=== PATIENT | female | born 1940 | race Caucasian/White ===

== ENCOUNTER → 2017-01-04 08:23 | Outpatient (CLI) | payer MEDICARE, OTHER ==
[2012-05-31 13:48] VITALS: BMI 24.4
== END | disposition home or self-care (01) ==
LOC: D.CT 08:23
DX: R91.1 Solitary pulmonary nodule (principal)

== ENCOUNTER → 2017-01-16 08:37 | Outpatient (CLI) | payer MEDICARE, OTHER ==
[2012-05-31 13:48] VITALS: BMI 24.4
== END | disposition home or self-care (01) ==
LOC: D.CT 08:37
DX: K86.2 Cyst of pancreas (principal)

== ENCOUNTER → 2017-01-19 09:17 | Outpatient (CLI) | payer MEDICARE, OTHER ==
[2012-05-31 13:48] VITALS: BMI 24.4
== END | disposition home or self-care (01) ==
LOC: D.MRI 09:17
DX: K86.2 Cyst of pancreas (principal)

== ENCOUNTER → 2017-04-12 16:46 | Outpatient (CLI) | payer MEDICARE, OTHER ==
[2012-05-31 13:48] VITALS: BMI 24.4
== END | disposition home or self-care (01) ==
LOC: D.MAMMO 13:00
DX: Z12.31 Encounter for screening mammogram for malignant neoplasm of breast (principal)

== ENCOUNTER → 2018-04-03 08:56 | Outpatient (CLI) | payer MEDICARE, OTHER ==
[~2018-04-03] VITALS: Ht 162.6 cm; Wt 65.5 kg
--- NOTE | ~2018-04-03 | HEMODYNAMI ---
PATIENT:THONG GUILLAUME MEDICAL RECORD: [id number] : 40 LOCATION:[facility] ADMISSION DATE: 04/03/18 Generatedon:04/03/201810:44 Patient name: THONG GUILLAUME Patient #: [id number] SSN: : 1940 Date of study: 04/03/2018 Page: Of Hemodynamic Procedure Report Patient Data Patient Demographics Procedure consent was obtained First Name: THONG Gender: Female Last Name: MARKELL : 1940 Patient #: [id number] Age: 77 year(s) Race: Unknown Additional ID: [id number] Contact details Address: [address] [place] [address] [address]REET State: [place] City: [place] Zip code: [address] Past Medical History Allergies Allergen Reaction Date Comments Reported Other allergy 04/03/2018 AL SOTO Admission Admission Data Admission Date: 04/03/2018 Admission Time: 8:56 Height (in.): 5.4 BSA: 0.28 (m2) Height (cm.): 13.72 BMI: 3471.95 (kg/m2) Weight (lbs.): 144 Weight (kg.): 65.32 Lab Results Lab Result Date: 04/03/2018 Lab Result Time: 0:00 Biochemistry Name Units Result Min Max BUN mg/dl 7 --(*---)-- 7 18 Creatinine mg/dl 0.9 --(-*--)-- 0.6 1.3 CBC Name Units Result Min Max Hemoglobin g/dl 12.2 *-(----)-- 13.5 17.5 Procedure Procedure Types Cath Procedure Diagnostic Procedure C [facility] w/Coronaries Sedation Charges Moderate Sedation up to 15 minutes Procedure Description Procedure Date Procedure Date: 04/03/2018 Procedure Start Time: 10:20 Procedure End Time: 10:42 Procedure Staff Name Function Mukund Wise MD Performing Physician Pamella Luciano RT Monitor Christian Rich RN Nurse Saige Jimenez RT Scrub Procedure Data Cath Procedure Fluoroscopy Diagnostic fluoroscopy Total fluoroscopy Time: 7.8 time: 7.8 min min Diagnostic fluoroscopy Total fluoroscopy dose: 440 dose: 440 mGy mGy Contrast Material Contrast Material Type Amount (ml) Isovue 300 49 Entry Location Entry Primary Successful Side Size Upsize Upsize Entry Closure Johnson ccessful Closure Location (Fr) 1 (Fr) 2 (Fr) Remarks Device Remarks Radial Right 6 Fr Mechanical artery Short Compression Estimated blood loss: 5 ml Diagnostic catheters Device Type Used For End Catheter Placement DIAGNOSTIC Kai 110cm Procedure 5Fr catheter ([id number]) DIAGNOSTIC AR MOD 5Fr Procedure Catheter ([id number]) DIAGNOSTIC Pigtail 5Fr Procedure catheter ([id number]) Procedure Complications No complications Procedure Medications Medication Administration Route Dosage 0.9% NaCl I.V. 100 ml/hr Oxygen etCO2 Nasal cannula 2 l/min Heparin Flush Bag added to field 2 bags (1000units/500ml NS) Lidocaine 2% added to field 20 Radial Cocktail added to field 1 syringe (Verapomil 2mg/Nitro 400mcg/Heparin 1500units) Versed I.V. 1 mg Fentanyl I.V. 25 mcg Radial Cocktail I.A. 1 syringe (Verapomil 2mg/Nitro 400mcg/Heparin 1500units) Hemodynamics Rest BSA: 0.28 (m2) HGB: 12.2 (g/dl) O2 Consumption: Estimated: 27.25 (ml/min) O2 Con sumption indexed: Estimated:97.32 (ml/min/m) Heart Rate: 88 (bpm) Pressure Samples Time Site Value (mmHg) Purpose Heart Use Rate(bpm) 10:35 LV -4/-5,-6 EDP 132 10:36 LV 262/-19,9 EDP 100 10:36 LV 266/-29,4 Snapshot 103 Gradients Valve Time Site 1 Site Mean SEP/DFP Peak To Heart Use 2 (mmHg) (sec/min) Peak Rate (mmHg) (bpm) Aortic 10:37 LV AO 103 Other 10:38 174/71(114) AO 104 Snapshots Pre Cath Intra NCS Post Cath Vital Signs Time Heart Resp SPO2 etCO2 NIBP (mmHg) Rhythm Pain Sedation Rate (ipm) (%) (mmHg) Status Level (bpm) 10:08:09 88 20 97 12.7 180/86(133) NSR 0 (11) 10(A) , No pain 10:13:05 90 28 100 22.5 165/73(133) NSR 0 (11) 10(A) , No pain 10:17:53 88 14 97 0 155/75(126) NSR 0 (11) 10(A) , No pain 10:22:36 90 17 98 0 152/83(131) NSR 0 (11) 9(A) , No pain 10:27:21 102 16 97 39.8 129/75(104) NSR 0 (11) 9(A) , No pain 10:32:01 99 18 98 39.8 144/80(119) NSR 0 (11) 9(A) , No pain 10:36:46 107 20 98 40.6 156/83(129) NSR 0 (11) 9(A) , No pain 10:41:35 95 15 99 0 146/81(115) NSR 0 (11) 10(A) , No pain Medications Time Medication Route Dose Verified Delivered Reason Notes Effectiveness by by 10:11:21 0.9% NaCl I.V. 100 Christian Christian Per ml/hr Hilario Rich physician RN RN 10:11:34 Oxygen etCO2 2 l/min Christian Christian Per Nasal Hilario Rich physician cannula RN RN 10:11:45 Heparin Flush added 2 bags Christian Christian used for Bag to Hilario Rich procedure (1000units/500ml RN RN NS) 10:11:56 Lidocaine 2% added 20ml Christian Christian for local to vial Hilario Rich anesthetic field LOPEZ RN 10:12:07 Radial Cocktail added 1 Christian Christian used for (Verapomil to syringe Hilario Rich procedure 2mg/Nitro field LOPEZ RN 400mcg/Heparin 1500units) 10:16:06 Versed I.V. 1 mg Christian Christian for sedation Hilario Rich RN RN 10:16:17 Fentanyl I.V. 25 mcg Christian Christian for sedation Hilario Rich RN RN 10:22:43 Radial Cocktail I.A. 1 Christian Mukund for (Verapomil syringe Hilario martins 2mg/Nitro RN 400mcg/Heparin 1500units) Procedure Log Time Note 9:54:18 Christian Rich RN sent for patient. Start room use. 9:54:19 Time tracking: Regular hours (M-F 7:00 - 5:00) 9:54:22 Plan of Care:Hemodynamics will remain stable., Cardiac rhythm will remain stable., Comfort level will be maintained., Respiratory function will remain adequate., Patient/ family verbilizes understanding of procedure., Procedure tolerated without complication., Recovers from procedure without complications.. 9:56:12 H&P Date Dictated: 03/29/2018 Within 30 days and on chart., H&P Addendum completed by physician on day of procedure. (MUST COMPLETE FOR ALL OUTPATIENTS). 9:56:29 Patient allergic to Other allergyCODEINE, LEVAQUIN 9:56:49 Patient Height : 5.4 inches 9:56:52 Patient Weight : 144 lbs 9:59:53 Patient received from Pre/Post Procedure Room to CCL 1 Alert and oriented. Tansferred to table in Supine position. 9:59:55 Warm blankets applied, and becka hugger turned on for patient comfort. 9:59:55 Correct patient and procedure confirmed by team. 9:59:57 Signed procedure consent form obtained from patient. 9:59:57 ECG and BP/O2 sat monitors applied to patient. 10:07:06 Vital chart was started 10:09:31 Baseline sample Acquired. 10:09:33 Rhythm: sinus rhythm 10:09:34 Full Disclosure recording started 10:09:36 Pre-procedure instructions explained to patient. 10:09:37 Pre-op teaching completed and patient verbalized understanding. 10:09:41 Family in patients room. 10:09:42 Patient NPO since Midnight. 10:09:44 Is the patient allergic to Iodine/contrast media? No. 10:09:47 Is patient on blood thinner?Yes 10:09:53 PRELOADED ON PLAVIX 10:09:55 Patient diabetic? No. 10:09:57 Patient not . Patient is over age 55. 10:09:59 Previous problem with sedation/anesthesia? No ? 10:10:00 Snore? Yes 10:10:01 Sleep apnea? No 10:10:02 Deviated septum? No 10:10:03 Opens mouth fully? Yes 10:10:04 Sticks out tongue? Yes 10:10:06 Airway obstruction? No ? 10:11:21 0.9% NaCl 100 ml/hr I.V. was administered by Christian Rich RN; Per physician; 10:11:34 Oxygen 2 l/min etCO2 Nasal cannula was administered by Christian Rich RN; Per physician; 10:11:45 Heparin Flush Bag (1000units/500ml NS) 2 bags added to field was administered by Christian Rich RN; used for procedure; 10:11:56 Lidocaine 2% 20ml vial added to field was administered by Christian Rich RN; for local anesthetic; 10:12:07 Radial Cocktail (Verapomil 2mg/Nitro 400mcg/Heparin 1500units) 1 syringe added to field was administered by Christian Rich RN; used for procedure; 10:13:23 Dentures? Yes IN TIGHT 10:13:27 Modified Sherif's test Ulnar < 7 seconds 10:13:29 Patient pain scale 0/10 ?. 10:13:41 IV patent on arrival in left hand with 0.9% NaCl at O. 10:14:07 Lab Result : BUN 7 mg/dl 10:14:07 Lab Result : Creatinine 0.9 mg/dl 10:14:07 Lab Result : Hemoglobin 12.2 g/dl 10:14:10 Lab results completed and on chart. 10:14:12 Right Radial & Right Groin area was prepped with chlora-prep and draped in sterile fashion 10:14:13 Alarms reviewed by R. N. 10:14:13 Sharps counted by scrub and verified by R.N. 10:14:16 Use device set Radial Dx or PCI 10:14:17 ACIST Syringe (00011) opened to sterile field. 10:14:19 Bag Decanter () opened to sterile field. 10:14:20 ACIST Hand Control (87475) opened to sterile field. 10:14:20 ACIST Manifold (74346) opened to sterile field. 10:14:21 Tegaderm 4 x 4 (1626W) opened to sterile field. 10:14:27 Medline Cath Pack ([id number]) opened to sterile field. 10:14:27 DIAGNOSTIC WIRE .035 260cm J wire (419804) opened to sterile field. 10:14:28 MBrace Wrist Support ([id number]) opened to sterile field. 10:14:29 SHEATH 6Fr Prelude Radial ([id number]) opened to sterile field. 10:15:39 --------ALL STOP TIME OUT------ :15:39 Final Timeout: patient, procedure, and site verified with staff and physician. All members of the team are in agreement. 10:15:41 Right Radial & Right Groin site verified by team. 10:15:44 Physical assessment completed. ASA score P 2 - A patient with mild systemic disease as per Mukund Wise MD. 10:15:49 Sedation plan: IV Moderate Sedation Medication:Versed, Fentanyl 10:16:06 Versed 1 mg I.V. was administered by Christian Rich RN; for sedation; 10:16:17 Fentanyl 25 mcg I.V. was administered by Christian Rich RN; for sedation; 10:19:39 Zero performed for pressure channel P1 10:20:04 Zero performed for pressure channel P1 10:20:17 Procedure started. 10:20:46 Local anesthetic to right radial artery with Lidocaine 2% by Mukund Wise MD.INITIAL ACCESS ONLY 10:22:20 A 6 Fr Short sheath was inserted into the Right Radial artery 10:22:43 Radial Cocktail (Verapomil 2mg/Nitro 400mcg/Heparin 1500units) 1 syringe I.A. was administered by Mukund Wise MD; for vasodilation; 10:22:54 A DIAGNOSTIC Kai 110cm 5Fr catheter ([id number]) was advanced over the wire and used for Procedure. 10:26:07 LCA angiography performed. 10:28:17 Catheter exchanged over wire. 10:29:05 A DIAGNOSTIC AR MOD 5Fr Catheter ([id number]) was advanced over the wire and used for Procedure. 10:30:02 RCA angiography performed. 10:31:32 ROADRUNNER .035 260 glide wire ([id number]) opened to sterile field. 10:31:57 ROAD RUNNER USED TO ADVANCE CATHETER ACROSS VALVE 10:33:45 Catheter exchanged over wire. 10:34:34 A DIAGNOSTIC Pigtail 5Fr catheter ([id number]) was advanced over the wire and used for Procedure. 10:34:43 LV gram done using WADSWORTH 10:34:46 Injector settings: Ml/sec: 12, Volume: 8, 10:38:09 LV hemodynamics recorded. 10:38:13 EF : 80 % 10:38:17 Catheter removed. 10:38:26 TR BAND Standard ([id number]) opened to sterile field. 10:38:41 Procedure ended.(Physican Out) 10:38:53 Sheath removed intact; hemostasis achieved with Mechanical Compression to the Right Radial artery. 10:38:59 Fluoroscopy time 07.80 minutes. 10:39:04 Fluoroscopy dose: 440 mGy 10:39:04 Flurop Dose total: 440 10:39:07 Contrast amount:Isovue 300 49ml. 10:39:08 Sharps counted by scrub and verified by R.N. 10:39:10 TR band inflated with 13cc of air. 10:39:15 Post-procedure physical assessment completed. ASA score P 2 - A patient with mild systemic disease as per Mukund Wise MD. 10:39:25 Estimated blood loss: 5 ml 10:39:26 Post procedure instruction explained to patient.Patient verbalizes understanding. 10:39:27 Patient needs reinforcement of post procedure teaching. 10:39:51 Procedure type changed to Cath procedure, Diagnostic procedure, LHC, LHC w/Coronaries, Sedation Charges, Moderate Sedation up to 15 minutes 10:40:25 Procedure and supply charges have been captured, reviewed, submitted and are correct. 10:40:27 Procedure Complication : No complications 10:42:36 Vital chart was stopped 10:42:36 See physician's report for complete and final results. 10:42:41 Report given to Pre/Post Procedure Room. 10:42:44 Patient transfered to Pre/Post Procedure Room with Bed. 10:42:46 Procedure ended. 10:42:46 Full Disclosure recording stopped 10:42:50 End room use (Document Last) Device Usage Item Name Manufacture Quantity Catalog Number Hospital Part Current M inimal Lot# / Charge Number Stock Stock Serial# Code ACIST Syringe Acist 1 67720 087756 612353 643196 2 0 (90404) [employer] Bag Decanter Microtek 1 988613 43164 897681 5 () Medical Inc. ACIST Hand Acist 1 76837 847691 196094 124783 5 Control (79084) [employer] Inc ACIST Manifold Acist 1 06543 410630 678633 023570 5 (18607) [employer] Inc Tegaderm 4 x 4 3M 1 1626W 619482 471575 187171 5 (1626W) Medline Cath Cardinal 1 [id number] 999263 53096 168094 5 Pack Health ([id number]) DIAGNOSTIC WIRE [facility] Micheal 1 750186 164728 560189 365856 3 0 .035 260cm J wire (074714) MBrace Wrist Advanced 1 140-0250-00 809473 54350 369403 5 Support Vascular ([id number]) Dynamics SHEATH 6Fr Merit 1 [id number] 623990 649275 764743 5 Prelude Radial Medical ([id number]) DIAGNOSTIC Terumo 1 40-8301 456307 804838 236812 5 Kai 110cm 5Fr catheter (901493) DIAGNOSTIC AR Cardinal 1 [id number] 101005 025027 412458 1 5 MOD 5Fr Health Catheter (829495A) ROADRUNNER .035 Cook Medical 1 [id number] 147467 708560 496393 5 260 glide wire (T61379) DIAGNOSTIC Cardinal 1 [id number] 003619 112311 085270 5 Pigtail 5Fr Health catheter (529223D) TR BAND Terumo 1 [id number] 795566 071432 601844 4 0 Standard ([id number]) Signature Audit [place] Stage Time Signature Unsigned Intra-Procedure 04/03/2018 Pamella Luciano 10:44:21 AM RT(R) Signatures Monitor : Pamella Luciano Signature : RT Date : Time : [facility] [address] [place] [address]
--- NOTE | ~2018-04-03 | OP ---
PATIENT NAME: THONG GUILLAUME MEDICAL RECORD: [id number] :40 LOCATION:D.CAT ADMISSION DATE: SURGEON: ABY SANDOVAL MD CATH NOTE DATE OF PROCEDURE: 04/03/2018 PROCEDURES: Left heart catheterization coronary angiography left ventriculogram INDICATION: Aortic stenosis PROCEDURE: Patient brought to cardiac catheterization lab in stable condition both groins sterilely prepped and draped. Patient had the right wrist sterilely prepped and draped. The patient then had a 6 Chinese sheath placed into the right radial artery using a modified Seldinger technique. The patient then had a selective engagement of the left ventricular cavity the left coronary artery and the right coronary artery respectively. For complete left heart catheterization. FINDINGS: Left main calcified plaquing LAD calcified 50-60% mid stenosis with 70% mid to distal stenosis LCx nondominant calcified diffuse plaquing RCA ostial 60% stenosis diffuse calcified plaquing Hemodynamics EDP 10-15 mmHg Ejection fraction 85% The patient has an 80-90 mm gradient peak to peak across the aortic valve. Calculated valve area 0.4 cm SELECTIVE CORONARY ANGIOGRAPHY: Left, right, left ventricular cavity INTERVENTION: None OVERALL IMPRESSION: Very severe aortic stenosis with moderate multivessel coronary artery disease. Recommend referral to CT surgery and for possible aortic valve replacement. The patient is in low risk patient except for age. We'll see what her fragility score is to see whether she would be a candidate for transcutaneous aortic valve replacement versus traditional surgical aortic valve replacement. ABY SANDOVAL MD at 1205 CC: [id number] DICTATION DATE: 04/03/18 1048 BURLESQUE DANCER: SIERRA 04/03/18 1200 REG [facility] [address] [place] [id number]
[~2018-04-03 08:56] MED LIST: BAYER CHEWABLE81 MG PO; CORDARONE200 MG PO; COZAAR100 MG PO; HYDRALAZINE HCL25 MG PO; K-TAB10 MEQ PO; LASIX20 MG PO; LOPRESSOR25 MG PO; ZITHROMAX250 MG PO; ZOCOR40 MG PO
[2018-04-03 09:23] VITALS: BP 143/80; Ht 162.6 cm; Wt 65.5 kg
[2018-04-03 09:32] LABS: BASOPHILS 0.3 % (0-2); EOSINOPHILS 1.5 % (0-7); HEMATOCRIT 36.7 % (36.0-48.0); HEMOGLOBIN 12.2 g/dL (12-16); IMMATURE GRANULOCYTES 0.2 % (0-5); LYMPHOCYTES 19.7 % (15-50); MCH 30.3 pg (26.0-34.0); MCHC 33.2 g/dL (31.0-37.0); MCV 91.1 fL (80.0-100.0); MEAN PLATELET VOLUME 9.5 fL (7.4-10.4); MONOCYTES 7.9 % (2-11); NEUTROPHILS 70.4 % (40-80); RBC 4.03 10x6/uL (4.00-5.40); RDW 12.7 % (11.5-14.5); WBC 6.2 10x3/uL (4.8-10.8)
[2018-04-03 09:48] LABS: ANION GAP 8.6 mmol/L (8-16); CALCIUM 9.4 mg/dL (8.5-10.1); CARBON DIOXIDE 31.4 mmol/L (21.0-32.0); CREATININE - SERUM 0.9 mg/dL (0.6-1.3)
[2018-04-03 09:55] LABS: PLATELET COUNT 300 10x3/uL (130-400)
== END | disposition home or self-care (01) ==
LOC: D.CATH 08:56
PROVIDERS: Internal Medicine Cardiovascular Disease
DX: I35.0 Nonrheumatic aortic (valve) stenosis (principal); I25.10 Atherosclerotic heart disease of native coronary artery without angina pectoris; Z01.812 Encounter for preprocedural laboratory examination

== ENCOUNTER 2018-04-16 19:00 | Outpatient (CLI) | payer MEDICARE, OTHER ==
[2018-04-03 09:23] VITALS: BMI 24.7
[~2018-04-16 19:00] MED LIST changes: -CORDARONE200 MG PO; -K-TAB10 MEQ PO; -LASIX20 MG PO; -LOPRESSOR25 MG PO; -ZITHROMAX250 MG PO
== END 2018-04-16 23:59 | disposition home or self-care (01) ==
LOC: D.MAMMO 19:00
DX: Z12.31 Encounter for screening mammogram for malignant neoplasm of breast (principal)

== ENCOUNTER 2018-04-26 14:00 | Inpatient (IN) | payer MEDICARE, OTHER ==
[~2018-04-26] VITALS: Ht 162.6 cm; Wt 70.9 kg
--- NOTE | ~2018-04-26 | OP ---
PATIENT NAME: THONG GUILLAUME MEDICAL RECORD: [id number] :40 LOCATION:[id number] ADMISSION DATE:04/27/18 SURGEON: WESLEY TOTH MD DATE OF OPERATION: 04/27/2018 SURGEON: Wesley Toth MD ASSISTANTS: MAMTA Lerner MD and MARGRET Long OPERATION PERFORMED: 1. Aortic valve replacement (21-mm Goodman pericardial bioprosthesis). 2. Coronary artery bypass graft times 2 (left internal mammary artery to LAD, reverse saphenous vein graft from aorta to posterior descending artery). PREOPERATIVE DIAGNOSES: Aortic stenosis, coronary artery disease. POSTOPERATIVE DIAGNOSES: Aortic stenosis, coronary artery disease. ANESTHESIA: General endotracheal anesthesia. ESTIMATED BLOOD LOSS: Total cardiopulmonary bypass with Cell Saver retransfusion, 3 packed red blood cells for preoperative anemia. COMPLICATIONS: None. SPECIMENS: 1. Left internal mammary artery lymph node for frozen section, benign. 2. Mediastinal lymph node, anthracotic, for permanent section. 3. Aortic valve leaflets, calcified, permanent pathology. COMPLICATIONS: None. CONDITION: Stable. DISPOSITION: CV ICU. OPERATIVE FINDINGS: 1. Transesophageal echocardiography confirmed severe aortic valve calcification including the aortic root with 0.3 cm-squared aortic valve area and significantly limited separation of the aortic valve leaflets. 2. Intraoperatively, severe calcification including 5 to 6 mm round calcifications on each of the coronary leaflets, extending down into the annulus, which was debrided fully and pledgeted valve sutures were used to place the valve. The calcification extended up around the left main coronary artery and in a noncoronary cusp extensively up the aorta. 3. Left internal mammary artery was a good conduit about a 3-mm vessel and it was a good match for the LAD, which was a 1.5-mm vessel. 4. The right coronary was calcified throughout. The posterior descending artery was a 1.5-mm vessel. 5. The patient cardiopulmonary bypass with low dose epinephrine, transesophageal echocardiography revealed good contractility throughout and no perivalvular aortic insufficiency. OPERATIVE INDICATION: Aortic stenosis and coronary artery disease. OPERATIVE REPORT [id number] THONG GUILLAUME DESCRIPTION OF PROCEDURE: The patient was brought to the operative suite. General anesthesia was obtained. The patient was prepped and draped. Simultaneously, greater saphenous vein was harvested with bridging incisions from the right lower extremity. Side branches clipped, vessel were removed and then later closed in 2 layers. Median sternotomy incision was made. Subcutaneous tissues divided with electrocautery. Sternum was divided with a saw. Left hemisternum was elevated. Left pleural cavity was entered. Left internal mammary vein was taken as a pedicle graft. Sternal retractor was placed. Pericardium was opened. It was cannulated. Dual stage venous cannula was inserted. The internal mammary was clipped distally and made ready for anastomosis. The patient was placed on cardiopulmonary bypass. Sites for distal anastomoses were selected. Retrograde cardioplegia cannula was inserted. Antegrade cardioplegia cannula was inserted. The patient was cooled. Crossclamp was placed. Cardioplegia was given antegrade and retrograde and this repeated at 15 minutes interval during the crossclamp time. Distal anastomoses were performed in standard technique. Transverse aortotomy was performed. Aortic valve was excised, debrided of calcium, thoroughly irrigated. Left ventricular vent was placed to the right superior pulmonary vein. The valve sutures were pledgeted and were placed from ventricular to aortic side. Valve was measured at 21-mm and the sutures were placed through the valve sewing ring, the valve was carefully lowered into place. Each suture was tied. The valve was well-seated. There was no perivalvular leak. The patient was rewarmed. Aortic incision was closed with double running pledgeted suture and the aortic root vent site was used at the proximal site with a 4.0-mm punch. Proximal anastomosis was performed, but the anastomosis was not tied. The patient was placed in steep Trendelenburg position. Left ventricular apex was vented. The patient was fully rewarmed. Crossclamp was removed. The aortic root was de-aired. Proximal anastomosis was tied. Vein graft was deaired and flow was restored in both grafts. The patient was defibrillated once, resumed a spontaneous rhythm. Atrial and ventricular pacing wires were placed. The patient was paced atrially. Left ventricular vent and retrograde cardioplegic cannulae were removed. The patient was stable and was weaned from cardiopulmonary bypass. The patient was decannulated. Some bleeding at the aortic cannulation site required multiple pledgets. The patient was given protamine. Thorough irrigation was undertaken. Graft laid appropriately and hemostasis was ensured. Drains were placed in the mediastinum and left pleural cavity. Pericardial fat was loosely reapproximated. Left chest was evacuated and irrigated. The internal mammary harvest site was inspected and was noted to be hemostatic. Sternum was closed with wires. The fascia was closed. Subcutaneous tissue was closed. Skin was closed. Dermabond was placed. [place] and sponge counts were reported as correct and the patient was taken to the ICU in stable condition. TRANSINT:[id number] Voice Confirmation ID: [id number] DOCUMENT ID: [id number] OPERATIVE REPORT [id number] THONG GUILLAUME DANIEL W MD at 0946 CC: RADHIKA FULTON DO [id number] DICTATION DATE: 04/27/18 1526 STENCIL PRINTER: 04/27/18 1627 ADM IN [facility] [address] [place] [address]
--- NOTE | ~2018-04-26 | TEE ---
PATIENT:THONG GUILLAUME MEDICAL RECORD: [id number] LOCATION:[place] [address] AGE OF PATIENT: 77 ADMISSION DATE: 04/27/18 SEX: F REFERRING PHYSICIAN: INTERPRETING PHYSICIAN: JESSICA VILLEGAS MD TRANSESOPHAGEAL ECHOCARDIOGRAM Date: 04/27/18 JAIME CHARGE Y INDICATIONS: AVR PREMEDICATIONS: PATIENT'S RESPONSE PROCEDURE DOPPLER MEASUREMENTS: LVIT LA PA RA LVOT RVOT Asc. Ao AV Gradient Peak AV Mean AV Area MV Gradient Peak MV Mean MV Area INTERPRETATION: LVD: 5.0 LVS: 4.1 Doppler: 2-D: COLOR FLOW DOPPLER NORMAL SALINE STUDY: MISCELLANOUS: DIAGNOSIS: PLAN: Neon Light Installer:Vivi Wise Melter Supervisor: Pauline PRESLEY COMMENTS: DATE OF SERVICE: 04/27/2018 PROCEDURE: Transesophageal echo evaluation of valvular structures during aortic valve replacement. FINDINGS: 1. Left ventricular chamber size is within normal limits. Left ventricular systolic function is normal. Overall ejection fraction estimated at 55%. 2. Left atrium, right atrium, and right ventricular chamber sizes are within TRANSESOPHAGEAL ECHOCARDIOGRAM REPORT [id number] THONG GUILLAUME normal limits. 3. Valvular structures: Aortic valve demonstrates severe calcific aortic stenosis; however, this is not a new finding. The patient is scheduled for valve replacement. The remaining valvular structures have normal structure and motion. 4. Doppler interrogation elsewise reveals mild aortic insufficiency, mild mitral regurgitation, no other valvular insufficiency or stenosis. 5. No evidence of pericardial effusion or left ventricular thrombus. TRANSINT:[id number] Voice Confirmation ID: [id number] DOCUMENT ID: [id number] at 1752 CC: [id number] DICTATION DATE: 04/27/18 1125 BI SOLUTIONS ARCHITECT: 04/27/18 1307 ADM IN [place] [address] [place] [address]
--- NOTE | ~2018-04-26 | HP ---
PATIENT: THONG GUILLAUME MEDICAL RECORD: [id number] ACCOUNT: [id number] LOCATION:[facility] : 40 ADMISSION DATE: 04/26/18 HISTORY AND PHYSICAL EXAMINATION THONG You (77yo, F) ID# [id number]. Date/Time04/17/2018 02:37QMLBQ77/[birth year]/1941Service Dept.NPP_[facility] ClinicProviderMEERA TOTH MDInsuranceMed Primary: [place] Insurance # : [id number] PCP : RADHIKA FULTON Referring Provider Name : RADHIKA FULTON Employer Name : RETIRED Med Secondary: .[facility] (MEDICARE SUPPLEMENT) Insurance # : [id number] Policy/Group # : PLAN F Employer Name : UNKNOWN Prescription: DSTPSDIR - Member is eligible. Chief Complaint Followup: Aortic valve stenosis aortic stenosis, eval for treatment Patient's Care Team Primary Care Provider (): RADHIKA FULTON: [address] [place] [address], , Referring Provider (): RADHIKA FULTON: [address] [place] [address], , Hair Stylist: ABY SANDOVAL MD: [address] [place] [address], [place] [address], , Patient's Pharmacies [facility] (ERX): [address] [facility], [place] [address], , Vitals BP:142/76 sitting L arm 04/17/2018 02:28 pm 136/72 sitting R arm 04/17/2018 02:29 pmBP Cuff Size:adult 04/17/2018 02:28 pm adult 04/17/2018 02:29 pmHR:84,reg 04/17/2018 02:29 pmHt:5 ft 4 in 04/17/2018 02:30 pmWt:141 lbs 04/17/2018 02:30 pmNotes:has hx of murmur, family thinks it is just being followed by cardiology and needs cnajzwjjv24/31/2018 02:31 pmBMI:24.2 04/17/2018 02:30 pmAllergies Reviewed Allergies CODEINE: Other (Severe)LEVAQUINMedications Reviewed Medications tmyozzn99/20/18 enteredErika WatkinshydrALAZINE 25 mg /04/18 filledArgEpitiro Health Systemslosartan 100 mg mgubfx60/27/18 filledArgTracsis Systemssimvastatin 40 mg ormrmj99/02/18 filledArgTracsis SystemsProblems Reviewed Problems Hyperlipidemia Anemia Essential hypertension Aortic valve stenosis Current tear of medial cartilage AND/OR meniscus of knee Osteoarthritis Family History Reviewed Family History Non-contributory.Mother- Heart diseaseSocial History HISTORY AND PHYSICAL [id number] THONG GUILLAUME Reviewed Social History Cardiology and General Family history of heart disease?: Y Smoking Status: Never smoker Non-smoker High Cholesterol: Y High blood pressure: Y Diabetes: N Alcohol intake: None Occupation: retired Marital status: Is blood transfusion acceptable in an emergency?: Y Surgical History Reviewed Surgical History Knee arthroscopy with medial meniscectomy - 05/31/2012 BREAST BX RIGHT-BENIGN COLONOSCOPY APPENDECTOMY HYSTERECTOMY SKIN LESION REMOVED SIGHT EFFECTS SPECIALIST History (not configured) Past Medical History Reviewed Past Medical History Coronary Artery Disease: Y Heart Disease: Y High Blood Pressure: Y Hyperlipidemia: Y Hypertension: Y Valve disease: Y - AORTIC STENOSIS Documents for Discussion N/A Screening None recorded. HPI Valvular Heart Disease Reported by patient. Context: aortic stenosis; gradient 88mm across valve Aortic Stenosis: last echo date 01/17/2018; value area 0.7cm; gradient 88mm Associated Symptoms: none severe aortic stenosis, asymptomatic although she cannot remember recent events Family reports her quality of life is good, lives independently, drives, cares for her grandkids Specifically they do not recall her complaining of chest pressure, dyspnea, syncope or near syncope, or palpitations ROS Additionally reports: as reviewed in the chart with the patient and family ROS as noted in the HPI Physical Exam Patient is a 77-year-old female. Constitutional: General Appearance well nourished and developed and healthy-appearing. Level of Distress NAD. Ambulation ambulating normally. HISTORY AND PHYSICAL [id number] THONG GUILLAUME Ears, Nose, Throat: Ears grossly normal hearing. Cardiovascular: Apical Impulse not displaced or no thrill. Heart Auscultation RRR; 3/6 holosystolic murmur. Arterial Pulses 2+ bilateral and dorsalis pedis 2+ bilateral. Edema no edema or varicosities. Lungs: Repiratory Effort no dyspnea. Percussion no hyperresonance or dullness or flatness. Auscultation no wheezing, rhonchi, or rales / crackles and breathing sounds normal and good air movement. Abdomen: Bowl Sounds normal. Inspection and Palpation no tenderness, guarding, or masses and soft and non-distended. Liver non-tender and no hepatomegaly. Spleen non-tender and no splenomegaly. Hernia none palpable. Musculoskeletal System: Gait And Stance normal gait and stance. Digits and Nails normal nails and no cyanosis. Joints, Bones, and Muscles normal strength and movement of all extremities. Neurologic: Cranial Nerves grossly intact. Sensation grossly intact. Lymph Nodes: Lymph Nodes no cervical LAD or supraclavicular LAD. Eyes: Lids and Conjunctivae no discharge or pallor and non-injected. Pupils PERRLA. Cornea grossly intact. EOM EOMI. Lens clear. Sclera non-icteric. Neck: Neck no masses, enlarged lymph nodes, or carotid bruits and supple and trachea midline. Thyroid no enlargement or nodules and non-tender. Skin: Inspection and Palpation no rash, lesions, ulcers, or jaundice. Assessment / Plan 1. 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 The patient would probably qualify for T AVR, however open surgical approach should be approximately 2% risk patient and famil y state understanding consent is given MEERA TOTH MD at 0735 CC: [id number] DICTATION DATE: 04/17/18 1430 MICROSOFT BI DEVELOPER: SIERRA 04/23/18 1011 PRE IN [facility] [address] [place] [address]
[2018-04-26 15:21] LABS: BASOPHILS 0.3 % (0-2); EOSINOPHILS 0.7 % (0-7); HEMATOCRIT 36.9 % (36.0-48.0); HEMOGLOBIN 12.1 g/dL (12-16); IMMATURE GRANULOCYTES 0.3 % (0-5); LYMPHOCYTES 19.4 % (15-50); MCHC 32.8 g/dL (31.0-37.0); MCV 91.3 fL (80.0-100.0); MEAN PLATELET VOLUME 9.3 fL (7.4-10.4); MONOCYTES 9.5 % (2-11); NEUTROPHILS 69.8 % (40-80); PLATELET COUNT 291 10x3/uL (130-400); RBC 4.04 10x6/uL (4.00-5.40); RDW 12.5 % (11.5-14.5); WBC 6.9 10x3/uL (4.8-10.8)
[2018-04-26 15:29] LABS: APTT 29.9 SECONDS (22.8-39.4); INR 0.9 (0.85-1.17); PROTIME 11.8 SECONDS (11.6-15.0)
[2018-04-26 15:45] LABS: ALBUMIN 3.6 g/dL (3.4-5.0); ANION GAP 8.3 mmol/L (8-16); BILIRUBIN - TOTAL 0.77 mg/dL (0.2-1.3); CALCIUM 9.3 mg/dL (8.5-10.1); CARBON DIOXIDE 32.3 mmol/L (21.0-32.0); PHOSPHOROUS 3.8 mg/dL (2.5-4.9); POTASSIUM - SERUM 4.6 mmol/L (3.5-5.1); PROTEIN - SERUM 6.9 g/dL (6.4-8.2); T4 THYROXIN - FREE 1.29 ng/dL (0.76-1.46); THYROID STIMULATING HORMONE 1.39 uIU/mL (0.36-3.74); URIC ACID 3.7 mg/dL (2.6-7.2)
[2018-04-26 15:46] LABS: APPEARANCE HAZY (CLEAR); BILIRUBIN NEGATIVE (NEGATIVE); COLOR YELLOW (YELLOW); GLUCOSE NEGATIVE (NEGATIVE); KETONE NEGATIVE (NEGATIVE); NITRITE NEGATIVE (NEGATIVE); PROTEIN NEGATIVE (NEGATIVE); UROBILINOGEN NORMAL (NORMAL)
[2018-04-26 15:51] LABS: AMORPHOUS SEDIMENT >1+ /lpf (NONE SEEN); BACTERIA FEW /hpf (NONE SEEN); EPITHELIAL CELLS 0-5 /hpf (0-5); GRANULAR CAST OCC /lpf (NONE SEEN); HYALINE CAST RARE /lpf (NONE SEEN); RED CELLS - URINE 0-5 /hpf (0-5); WHITE CELLS - URINE 0-5 /hpf (0-5)
[2018-04-27] VITALS (39 sets, daily range): BP systolic 89–141; BP diastolic 34–84; BMI 24.2; BMI 26.5
[2018-04-28] VITALS (94 sets, daily range): BP systolic 98–146; BP diastolic 30–63
[2018-04-28 06:50] LABS: ANION GAP 9.9 mmol/L (8-16); BILIRUBIN - TOTAL 0.86 mg/dL (0.2-1.3); CALCIUM 7.5 mg/dL (8.5-10.1); CARBON DIOXIDE 27.5 mmol/L (21.0-32.0); CREATININE - SERUM 0.9 mg/dL (0.6-1.3); POTASSIUM - SERUM 4.4 mmol/L (3.5-5.1)
[2018-04-28 06:52] LABS: HEMATOCRIT 33.7 % (36.0-48.0); HEMOGLOBIN 11.4 g/dL (12-16); MCH 29.2 pg (26.0-34.0); MCHC 33.8 g/dL (31.0-37.0); MCV 86.2 fL (80.0-100.0); MEAN PLATELET VOLUME 10.4 fL (7.4-10.4); RBC 3.91 10x6/uL (4.00-5.40); RDW 14.5 % (11.5-14.5); WBC 13.1 10x3/uL (4.8-10.8)
[2018-04-28 07:05] LABS: ALBUMIN 2.2 g/dL (3.4-5.0); PROTEIN - SERUM 4.1 g/dL (6.4-8.2)
[2018-04-28 07:12] LABS: MAGNESIUM - SERUM 2.4 mg/dL (1.8-2.4); PHOSPHOROUS 3.7 mg/dL (2.5-4.9)
[2018-04-29] VITALS (68 sets, daily range): BP systolic 109–151; BP diastolic 38–73
[2018-04-29 06:17] LABS: HEMATOCRIT 32.4 % (36.0-48.0); HEMOGLOBIN 10.6 g/dL (12-16); MCH 29.4 pg (26.0-34.0); MCHC 32.7 g/dL (31.0-37.0); MEAN PLATELET VOLUME 10.2 fL (7.4-10.4); PLATELET COUNT 92 10x3/uL (130-400); RDW 14.4 % (11.5-14.5)
[2018-04-29 06:19] LABS: WBC 17.2 10x3/uL (4.8-10.8)
[2018-04-29 07:07] LABS: PLATELET ESTIMATE DECREASED
[2018-04-29 07:31] LABS: ALBUMIN 2.1 g/dL (3.4-5.0); ANION GAP 9.2 mmol/L (8-16); BILIRUBIN - TOTAL 0.42 mg/dL (0.2-1.3); CALCIUM 7.6 mg/dL (8.5-10.1); CREATININE - SERUM 0.8 mg/dL (0.6-1.3); POTASSIUM - SERUM 4.2 mmol/L (3.5-5.1); PROTEIN - SERUM 4.6 g/dL (6.4-8.2)
[2018-04-30] VITALS (24 sets, daily range): BP systolic 101–153; BP diastolic 43–65
[2018-04-30 04:07] LABS: HEMATOCRIT 31.2 % (36.0-48.0); MCH 29.2 pg (26.0-34.0); MCHC 32.1 g/dL (31.0-37.0); MCV 91.2 fL (80.0-100.0); RBC 3.42 10x6/uL (4.00-5.40); RDW 14.2 % (11.5-14.5); WBC 15.9 10x3/uL (4.8-10.8)
[2018-04-30 04:44] LABS: ALBUMIN 2.1 g/dL (3.4-5.0); ANION GAP 6.7 mmol/L (8-16); BILIRUBIN - TOTAL 0.5 mg/dL (0.2-1.3); CALCIUM 8.3 mg/dL (8.5-10.1); CREATININE - SERUM 0.9 mg/dL (0.6-1.3); POTASSIUM - SERUM 4.7 mmol/L (3.5-5.1); PROTEIN - SERUM 4.9 g/dL (6.4-8.2)
[2018-05-01] VITALS (23 sets, daily range): BP systolic 99–145; BP diastolic 40–66
[2018-05-01 05:06] LABS: HEMATOCRIT 30.2 % (36.0-48.0); HEMOGLOBIN 9.4 g/dL (12-16); MCH 29.1 pg (26.0-34.0); MCHC 31.1 g/dL (31.0-37.0); RBC 3.23 10x6/uL (4.00-5.40)
[2018-05-01 05:19] LABS: MCV 93.5 fL (80.0-100.0); WBC 11.1 10x3/uL (4.8-10.8)
[2018-05-01 05:32] LABS: ALBUMIN 1.9 g/dL (3.4-5.0); ANION GAP 5.1 mmol/L (8-16); BILIRUBIN - TOTAL 0.55 mg/dL (0.2-1.3); CALCIUM 8.4 mg/dL (8.5-10.1); CARBON DIOXIDE 35.2 mmol/L (21.0-32.0); CREATININE - SERUM 0.8 mg/dL (0.6-1.3); POTASSIUM - SERUM 5.3 mmol/L (3.5-5.1); PROTEIN - SERUM 4.8 g/dL (6.4-8.2)
[2018-05-02] VITALS (21 sets, daily range): BP systolic 93–137; BP diastolic 41–64; Ht 162.6 cm; Wt 70.9 kg
[2018-05-02 06:39] LABS: HEMATOCRIT 29.4 % (36.0-48.0); HEMOGLOBIN 9.2 g/dL (12-16); MCH 29.4 pg (26.0-34.0); MCHC 31.3 g/dL (31.0-37.0); MCV 93.9 fL (80.0-100.0); MEAN PLATELET VOLUME 9.1 fL (7.4-10.4); RBC 3.13 10x6/uL (4.00-5.40); RDW 13.7 % (11.5-14.5); WBC 8.4 10x3/uL (4.8-10.8)
[2018-05-02 06:53] LABS: ALBUMIN 1.8 g/dL (3.4-5.0); ANION GAP 5.3 mmol/L (8-16); BILIRUBIN - TOTAL 0.66 mg/dL (0.2-1.3); CALCIUM 8.5 mg/dL (8.5-10.1); CARBON DIOXIDE 37.3 mmol/L (21.0-32.0); CREATININE - SERUM 0.8 mg/dL (0.6-1.3); POTASSIUM - SERUM 4.6 mmol/L (3.5-5.1); PROTEIN - SERUM 4.9 g/dL (6.4-8.2)
[2018-05-03] VITALS (22 sets, daily range): BP systolic 95–139; BP diastolic 41–64
[2018-05-04] VITALS (15 sets, daily range): BP systolic 116–155; BP diastolic 50–83
[2018-05-04 05:12] LABS: BASOPHILS 0.3 % (0-2); EOSINOPHILS 3.7 % (0-7); HEMATOCRIT 29.5 % (36.0-48.0); HEMOGLOBIN 9.4 g/dL (12-16); LYMPHOCYTES 14.4 % (15-50); MCH 29.8 pg (26.0-34.0); MCHC 31.9 g/dL (31.0-37.0); MCV 93.7 fL (80.0-100.0); MEAN PLATELET VOLUME 9.3 fL (7.4-10.4); MONOCYTES 8.7 % (2-11); NEUTROPHILS 71.9 % (40-80); RBC 3.15 10x6/uL (4.00-5.40); RDW 13.7 % (11.5-14.5); WBC 7.1 10x3/uL (4.8-10.8)
[2018-05-04 05:19] LABS: PLATELET COUNT 294 10x3/uL (130-400)
[2018-05-04 05:27] LABS: ANION GAP 4.4 mmol/L (8-16); CALCIUM 8.8 mg/dL (8.5-10.1); CREATININE - SERUM 0.8 mg/dL (0.6-1.3); MAGNESIUM - SERUM 1.7 mg/dL (1.8-2.4); POTASSIUM - SERUM 4.4 mmol/L (3.5-5.1)
[2018-05-04] MEDS ORDERED: LOPRESSOR25 MG PO (15:04)
[2018-05-04] MEDS ORDERED: CORDARONE200 MG PO (15:04)
== END 2018-05-04 16:15 | DRG 220 ==
LOC: D.SDCHOLD 15:30 → D.CVICU 04-27 05:05 → D.SDCHOLD 04-27 05:05 → D.CVICU 04-27 12:06 → D.SDCHOLD 04-27 15:30 → D.CVICU 05-04 16:15
PROVIDERS: Thoracic Surgery (Cardiothoracic Vascular Surgery)
PROC: 021009W Bypass Coronary Artery, One Artery from Aorta with Autologous Venous Tissue, Open Approach (ICD-10-PCS; 2018-04-27)
PROC: 06BP0ZZ Excision of Right Saphenous Vein, Open Approach (ICD-10-PCS; 2018-04-27)
PROC: 5A1221Z Performance of Cardiac Output, Continuous (ICD-10-PCS; 2018-04-27)
PROC: B24BZZ4 Ultrasonography of Heart with Aorta, Transesophageal (ICD-10-PCS; 2018-04-27)
PROC: 02RF08Z Replacement of Aortic Valve with Zooplastic Tissue, Open Approach (ICD-10-PCS; principal; 2018-04-27 07:30)
PROC: 02100Z9 Bypass Coronary Artery, One Artery from Left Internal Mammary, Open Approach (ICD-10-PCS; 2018-04-27 07:30)
PROC: 05HY33Z Insertion of Infusion Device into Upper Vein, Percutaneous Approach (ICD-10-PCS; 2018-05-01)
DX: I35.0 Nonrheumatic aortic (valve) stenosis (principal); I97.89 Other postprocedural complications and disorders of the circulatory system, not elsewhere classified; F05 Delirium due to known physiological condition; I10 Essential (primary) hypertension; E78.5 Hyperlipidemia, unspecified; I25.10 Atherosclerotic heart disease of native coronary artery without angina pectoris; D64.9 Anemia, unspecified; K21.9 Gastro-esophageal reflux disease without esophagitis; M19.90 Unspecified osteoarthritis, unspecified site; R05 Cough; R19.7 Diarrhea, unspecified; I48.91 Unspecified atrial fibrillation

== ENCOUNTER 2018-05-04 15:55 | Inpatient (IN) | payer MEDICARE, OTHER ==
[~2018-05-04] VITALS: Ht 162.6 cm; Wt 64.4 kg
--- NOTE | ~2018-05-04 | RHP ---
PATIENT: THONG GUILLAUME MEDICAL RECORD: [id number] ACCOUNT: [id number] LOCATION:[facility]1118 : 40 ADMISSION DATE: 05/04/18 REHABILITATION HISTORY AND PHYSICAL EXAMINATION POST ADMISSION PHYSICIAN EXAMINATION POST-ADMISSION PHYSICAL EXAMINATION AND HISTORY AND PHYSICAL DATE OF ADMISSION: 05/04/2018 ADMITTING DIAGNOSES: Acute valvular stenosis, status post valve replacement and coronary artery bypass grafting x2. HISTORY OF PRESENT ILLNESS: The patient was admitted to the rehab under cardiac impairment group status post aortic valve replacement and coronary artery bypass grafting times 2. She was admitted to Dr. Rico for 2-vessel coronary artery bypass grafting and aortic valve replacement. She remained on the vent times 2 days. She is now extubated and on 1 liter of O2. Family practice was consulted for medical management of hypertension, hyperlipidemia, which will require continued medical management in the rehab unit postop including some leukocytosis and empiric antibiotic therapy. Barriers to discharge include 3 stairs going into her home prior to admission. Prior to admission, she was independent with ADLs and ambulation, living alone and continues to drive her own car. Currently, she is mod-to-max assist with a rolling walker requiring several rest stops to ambulate. She has min-to-mod assist with ADLs. She will require intensive therapy in order to return back to her prior level of function and be able to go home. Comorbidities include coronary artery disease, hyperlipidemia, bilateral pleural effusions, and acid reflux. PAST MEDICAL HISTORY: Significant for memory loss, hypertension, coronary artery disease, hyperlipidemia, pneumonia, acid reflux, incontinence, arthritis, osteoporosis. PAST SURGICAL HISTORY: Includes bilateral meniscectomy, appendectomy, hysterectomy, knee surgeries, fusion of the left thumb, trigger finger release, and bilateral breast biopsies. ALLERGIES: DEMEROL, CODEINE, LEVAQUIN. CURRENT MEDICATIONS: Include Tylenol 650 every 4 hours, Zocor 40 mg at bedtime, metoprolol 25 mg b.i.d., aspirin chewable 81 mg daily, amiodarone 200 mg b.i.d., and polyethylene glycol 17 grams in 8 ounces of water daily. HABITS: No alcohol or tobacco use. FAMILY HISTORY: Noncontributory. SOCIAL HISTORY: The patient hopes to return back home and get back to her prior level of functioning. REVIEW OF SYSTEMS: GENERAL: Does complain of little weakness and fatigue. HEENT: Denies cold, cough, or congestion. CARDIOVASCULAR: Denies any chest pain, but does complain of some discomfort to her chest. HISTORY AND PHYSICAL [id number] THONG GUILLAUME PHYSICAL EXAMINATION: VITAL SIGNS: Stable, afebrile. GENERAL: An elderly female, in no acute distress upon exam. HEENT: Normocephalic and atraumatic. Mucosa moist. NECK: Supple. No lymphadenopathy. LUNGS: Clear at this time. HEART: Regular rate and rhythm. ABDOMEN: Benign. EXTREMITIES: No clubbing, cyanosis, or edema. NEUROLOGIC: She is noted to have a little bit of weakness. SKIN: Her chest incision looks good. LABORATORY DATA: White count of 6.3, H&H of 9.6 and 30.4, and platelet count is 356. Her sodium is 139, potassium 4.5, BUN and creatinine of 11 and 0.9, blood sugar is noted to be 101. ASSESSMENT: This is a 77-year-old female patient admitted to rehab with a working diagnosis of aortic stenosis, status post valve replacement, coronary bypass grafting times 2. The patient has potential to make improvement. We will institute the following multidisciplinary therapies including, not limited to, physical, occupational, respiratory, speech, nutritional services, prosthetics and orthotics. Given her complex medical condition and risks for more complications, rehabilitation services cannot be provided at a low level of care such as a prison facility. PLAN: 1. Admit to [facility] for intensive inpatient therapy to include the following disciplines: A. Physical therapy to improve gait, all transfer skills and bed mobility to a modified independent level. B. Occupational therapy to improve activities of daily living to a modified independent level. C. Case management to assist with discharge planning and placement options. D. Nutrition to assist with nutritional needs. E. Rehabilitation nursing to assist in monitoring the patient's underlying medical conditions and to assist with any type of bowel or bladder management. 2. The patient's current medications and medical care will be continued. 3. The patient will be placed on standard fall precautions. 4. The patient's estimated length of stay is approximately 7-10 days. 5. We will discuss this patient during care team staff meeting this week. We will work on getting her mobility back so she is able to get up those 3 stairs going into her house and we will see her again on Monday morning or earlier if necessary. TRANSINT:[id number] Voice Confirmation ID: [id number] DOCUMENT ID: [id number] LOCO notes whether there has been none or any medical/functional change since admission: - No change since prescreen. LOCO attests patient continues to be appropriate for IRF: - Continues to be appropriate. HISTORY AND PHYSICAL [id number] THONG GUILLAUME SCOTT MD at 1809 CC: [id number] DICTATION DATE: 05/05/18 1329 MOLD CARPENTER: 05/05/18 1453 ADM IN [facility] [address] [place] [id number]
[~2018-05-04 15:55] MED LIST changes: +CORDARONE200 MG PO; +LOPRESSOR25 MG PO
[2018-05-04 18:00] VITALS: BP 130/56
[2018-05-04 18:40] VITALS: BP 130/56; BMI 23.2
[2018-05-05 06:46] LABS: BASOPHILS 0.6 % (0-2); EOSINOPHILS 5.4 % (0-7); HEMATOCRIT 30.4 % (36.0-48.0); HEMOGLOBIN 9.6 g/dL (12-16); IMMATURE GRANULOCYTES 0.9 % (0-5); LYMPHOCYTES 15.4 % (15-50); MCH 29.3 pg (26.0-34.0); MCHC 31.6 g/dL (31.0-37.0); MCV 92.7 fL (80.0-100.0); MEAN PLATELET VOLUME 8.9 fL (7.4-10.4); MONOCYTES 9.4 % (2-11); NEUTROPHILS 68.3 % (40-80); RBC 3.28 10x6/uL (4.00-5.40); RDW 13.7 % (11.5-14.5); WBC 6.7 10x3/uL (4.8-10.8)
[2018-05-05 06:47] LABS: PLATELET COUNT 356 10x3/uL (130-400)
[2018-05-05 06:55] LABS: ANION GAP 4.4 mmol/L (8-16); CALCIUM 8.5 mg/dL (8.5-10.1); CARBON DIOXIDE 35.1 mmol/L (21.0-32.0); CREATININE - SERUM 0.9 mg/dL (0.6-1.3); POTASSIUM - SERUM 4.5 mmol/L (3.5-5.1)
[2018-05-05 08:00] VITALS: BP 114/50
[2018-05-05 20:00] VITALS: BP 119/68
[2018-05-06 08:00] VITALS: BP 120/59
[2018-05-07 06:13] LABS: BASOPHILS 0.4 % (0-2); HEMATOCRIT 29.6 % (36.0-48.0); HEMOGLOBIN 9.3 g/dL (12-16); IMMATURE GRANULOCYTES 0.7 % (0-5); MCH 29.5 pg (26.0-34.0); MCHC 31.4 g/dL (31.0-37.0); MEAN PLATELET VOLUME 8.8 fL (7.4-10.4); MONOCYTES 9.5 % (2-11); NEUTROPHILS 70.4 % (40-80); PLATELET COUNT 402 10x3/uL (130-400); RBC 3.15 10x6/uL (4.00-5.40); RDW 13.8 % (11.5-14.5)
[2018-05-07 06:22] LABS: ANION GAP 5.6 mmol/L (8-16); CALCIUM 8.3 mg/dL (8.5-10.1); CARBON DIOXIDE 35.7 mmol/L (21.0-32.0); CREATININE - SERUM 0.9 mg/dL (0.6-1.3); POTASSIUM - SERUM 4.3 mmol/L (3.5-5.1)
[2018-05-07 08:00] VITALS: BP 120/70
[2018-05-07 11:12] VITALS: Ht 162.6 cm; Wt 64.4 kg
[2018-05-07 20:00] VITALS: BP 153/62
[2018-05-08 08:00] VITALS: BP 136/54
[2018-05-08 19:00] VITALS: BP 150/59
[2018-05-09 06:27] LABS: BASOPHILS 0.7 % (0-2); EOSINOPHILS 4.5 % (0-7); HEMATOCRIT 30.6 % (36.0-48.0); HEMOGLOBIN 9.3 g/dL (12-16); IMMATURE GRANULOCYTES 0.4 % (0-5); LYMPHOCYTES 15.3 % (15-50); MCH 29.2 pg (26.0-34.0); MCHC 30.4 g/dL (31.0-37.0); MEAN PLATELET VOLUME 8.9 fL (7.4-10.4); MONOCYTES 11.2 % (2-11); NEUTROPHILS 67.9 % (40-80); PLATELET COUNT 438 10x3/uL (130-400); RBC 3.18 10x6/uL (4.00-5.40); WBC 7.1 10x3/uL (4.8-10.8)
[2018-05-09 06:50] LABS: ANION GAP 5.5 mmol/L (8-16); CALCIUM 8.5 mg/dL (8.5-10.1); CREATININE - SERUM 0.9 mg/dL (0.6-1.3); MCV 96.2 fL (80.0-100.0); POTASSIUM - SERUM 4.5 mmol/L (3.5-5.1)
[2018-05-09 08:00] VITALS: BP 148/57
[2018-05-09 19:00] VITALS: BP 152/52
[2018-05-10 07:53] VITALS: BP 130/45
[2018-05-11 06:45] LABS: BASOPHILS 0.5 % (0-2); EOSINOPHILS 3.5 % (0-7); HEMATOCRIT 31.7 % (36.0-48.0); HEMOGLOBIN 9.6 g/dL (12-16); IMMATURE GRANULOCYTES 0.3 % (0-5); LYMPHOCYTES 16.3 % (15-50); MCH 29.3 pg (26.0-34.0); MCHC 30.3 g/dL (31.0-37.0); MCV 96.6 fL (80.0-100.0); MEAN PLATELET VOLUME 9.2 fL (7.4-10.4); MONOCYTES 6.3 % (2-11); NEUTROPHILS 73.1 % (40-80); PLATELET COUNT 450 10x3/uL (130-400); RBC 3.28 10x6/uL (4.00-5.40); RDW 14.3 % (11.5-14.5); WBC 9.2 10x3/uL (4.8-10.8)
[2018-05-11 06:52] LABS: ANION GAP 3.6 mmol/L (8-16); CALCIUM 8.9 mg/dL (8.5-10.1); CARBON DIOXIDE 38.1 mmol/L (21.0-32.0); CREATININE - SERUM 0.9 mg/dL (0.6-1.3); POTASSIUM - SERUM 4.7 mmol/L (3.5-5.1)
[2018-05-11 07:58] VITALS: BP 141/51
[2018-05-11 18:00] VITALS: BP 144/57
[2018-05-12 08:00] VITALS: BP 112/43
[2018-05-12 19:36] VITALS: BP 137/53
[2018-05-13 08:00] VITALS: BP 139/54
[2018-05-13 20:00] VITALS: BP 170/61
[2018-05-14 05:26] LABS: BASOPHILS 0.6 % (0-2); EOSINOPHILS 3.9 % (0-7); HEMATOCRIT 29.5 % (36.0-48.0); IMMATURE GRANULOCYTES 0.4 % (0-5); LYMPHOCYTES 18.6 % (15-50); MCH 29.3 pg (26.0-34.0); MCHC 30.5 g/dL (31.0-37.0); MCV 96.1 fL (80.0-100.0); MEAN PLATELET VOLUME 8.8 fL (7.4-10.4); MONOCYTES 8.3 % (2-11); NEUTROPHILS 68.2 % (40-80); PLATELET COUNT 366 10x3/uL (130-400); RBC 3.07 10x6/uL (4.00-5.40); RDW 14.4 % (11.5-14.5); WBC 6.9 10x3/uL (4.8-10.8)
[2018-05-14 05:44] LABS: ANION GAP 4.5 mmol/L (8-16); CALCIUM 8.6 mg/dL (8.5-10.1); CARBON DIOXIDE 38.2 mmol/L (21.0-32.0); CREATININE - SERUM 0.9 mg/dL (0.6-1.3); POTASSIUM - SERUM 4.7 mmol/L (3.5-5.1)
[2018-05-14 09:11] VITALS: BP 114/46
[2018-05-14 18:00] VITALS: BP 134/56
[2018-05-15 06:58] LABS: BASOPHILS 0.9 % (0-2); EOSINOPHILS 3.6 % (0-7); HEMATOCRIT 31.1 % (36.0-48.0); HEMOGLOBIN 9.4 g/dL (12-16); IMMATURE GRANULOCYTES 0.3 % (0-5); LYMPHOCYTES 18.7 % (15-50); MCH 29.3 pg (26.0-34.0); MCHC 30.2 g/dL (31.0-37.0); MCV 96.9 fL (80.0-100.0); MEAN PLATELET VOLUME 9.7 fL (7.4-10.4); MONOCYTES 11.5 % (2-11); PLATELET COUNT 336 10x3/uL (130-400); RBC 3.21 10x6/uL (4.00-5.40); RDW 14.4 % (11.5-14.5)
[2018-05-15 07:18] LABS: ANION GAP 4.6 mmol/L (8-16); CALCIUM 8.6 mg/dL (8.5-10.1); CARBON DIOXIDE 39.3 mmol/L (21.0-32.0); CREATININE - SERUM 0.9 mg/dL (0.6-1.3); POTASSIUM - SERUM 4.9 mmol/L (3.5-5.1)
[2018-05-15 07:47] VITALS: BP 128/55
[2018-05-15 19:00] VITALS: BP 119/48
[2018-05-16 07:49] VITALS: BP 149/65
[2018-05-16 19:00] VITALS: BP 132/52
[2018-05-17 06:32] LABS: ANION GAP 6.3 mmol/L (8-16); CALCIUM 8.8 mg/dL (8.5-10.1); CARBON DIOXIDE 38.7 mmol/L (21.0-32.0)
[2018-05-17 06:33] LABS: BASOPHILS 1.1 % (0-2); EOSINOPHILS 5.6 % (0-7); HEMATOCRIT 31.5 % (36.0-48.0); HEMOGLOBIN 9.7 g/dL (12-16); IMMATURE GRANULOCYTES 0.2 % (0-5); LYMPHOCYTES 24.4 % (15-50); MCH 29.3 pg (26.0-34.0); MCHC 30.8 g/dL (31.0-37.0); MCV 95.2 fL (80.0-100.0); MEAN PLATELET VOLUME 9.3 fL (7.4-10.4); MONOCYTES 9.9 % (2-11); NEUTROPHILS 58.8 % (40-80); PLATELET COUNT 305 10x3/uL (130-400); RBC 3.31 10x6/uL (4.00-5.40); RDW 14.6 % (11.5-14.5); WBC 5.6 10x3/uL (4.8-10.8)
[2018-05-17 08:00] VITALS: BP 117/52
[2018-05-17 19:00] VITALS: BP 123/46
[2018-05-18 08:00] VITALS: BP 125/52
[2018-05-18] MEDS ORDERED: LASIX20 MG PO (08:28)
[2018-05-18] MEDS ORDERED: ZITHROMAX250 MG PO (08:29)
[2018-05-18] MEDS ORDERED: K-TAB10 MEQ PO (08:29)
== END 2018-05-18 12:45 | disposition home or self-care (01) | DRG 949 ==
LOC: D.REHAB 15:55
PROVIDERS: Emergency Medicine
DX: Z48.812 Encounter for surgical aftercare following surgery on the circulatory system (principal); J90 Pleural effusion, not elsewhere classified; I25.10 Atherosclerotic heart disease of native coronary artery without angina pectoris; E78.5 Hyperlipidemia, unspecified; K21.9 Gastro-esophageal reflux disease without esophagitis; I10 Essential (primary) hypertension

== ENCOUNTER → 2018-06-13 13:14 | Outpatient (CLI) | payer MEDICARE, OTHER ==
[2018-05-07 11:12] VITALS: BMI 23.1
[~2018-06-13 13:14] MED LIST changes: +K-TAB10 MEQ PO; +LASIX20 MG PO; +ZITHROMAX250 MG PO
[2018-06-13 13:40] LABS: HEMATOCRIT 38.3 % (36.0-48.0); HEMOGLOBIN 12.5 g/dL (12-16); MCH 29.7 pg (26.0-34.0); MCHC 32.6 g/dL (31.0-37.0); MEAN PLATELET VOLUME 9.1 fL (7.4-10.4); RBC 4.21 10x6/uL (4.00-5.40); RDW 13.9 % (11.5-14.5); WBC 6.1 10x3/uL (4.8-10.8)
[2018-06-13 14:03] LABS: ALBUMIN 3.6 g/dL (3.4-5.0); ANION GAP 10.5 mmol/L (8-16); BILIRUBIN - TOTAL 0.41 mg/dL (0.2-1.3); CALCIUM 9.3 mg/dL (8.5-10.1); CARBON DIOXIDE 30.6 mmol/L (21.0-32.0); CREATININE - SERUM 1.2 mg/dL (0.6-1.3); POTASSIUM - SERUM 4.1 mmol/L (3.5-5.1); PROTEIN - SERUM 6.7 g/dL (6.4-8.2)
== END | disposition home or self-care (01) ==
LOC: D.LAB 09:00 → D.RAD 10:00 → D.LAB 13:14
PROVIDERS: Thoracic Surgery (Cardiothoracic Vascular Surgery)
DX: J91.8 Pleural effusion in other conditions classified elsewhere (principal); D64.9 Anemia, unspecified

== ENCOUNTER 2019-01-05 13:52 | Emergency (ER) | payer MEDICARE, OTHER ==
[~2019-01-05] VITALS: Ht 162.6 cm; Wt 63.6 kg
[2019-01-05 14:06] VITALS: Ht 162.6 cm; Wt 63.6 kg
[2019-01-05] MEDS ORDERED: COZAAR25 MG PO (14:08)
[2019-01-05] MEDS ORDERED: PRAVACHOL40 MG PO (14:09)
[2019-01-05 14:35] LABS: BASOPHILS 0.2 % (0-2); EOSINOPHILS 0.3 % (0-7); HEMATOCRIT 41.6 % (36.0-48.0); IMMATURE GRANULOCYTES 0.3 % (0-5); LYMPHOCYTES 10.8 % (15-50); MCH 30.4 pg (26.0-34.0); MCHC 33.7 g/dL (31.0-37.0); MCV 90.4 fL (80.0-100.0); MEAN PLATELET VOLUME 9.9 fL (7.4-10.4); MONOCYTES 5.6 % (2-11); NEUTROPHILS 82.8 % (40-80); PLATELET COUNT 262 10x3/uL (130-400); RDW 12.7 % (11.5-14.5); WBC 10.8 10x3/uL (4.8-10.8)
[2019-01-05 15:13] LABS: APPEARANCE CLEAR (CLEAR); BILIRUBIN NEGATIVE (NEGATIVE); COLOR YELLOW (YELLOW); GLUCOSE NEGATIVE (NEGATIVE); KETONE MODERATE mg/dL (NEGATIVE); NITRITE NEGATIVE (NEGATIVE); PROTEIN 1+ mg/dL (NEGATIVE)
[2019-01-05 15:15] LABS: BACTERIA FEW /hpf (NONE SEEN); EPITHELIAL CELLS 0-5 /hpf (0-5); RED CELLS - URINE 0-5 /hpf (0-5); WHITE CELLS - URINE 0-5 /hpf (0-5)
[2019-01-05] MEDS ORDERED: LOMOTIL 2.5-0.1 EAC1 PO (16:10)
[2019-01-05 16:17] VITALS: BP 136/78
== END 2019-01-05 16:21 | disposition home or self-care (01) ==
LOC: D.ER 13:52
PROVIDERS: Family Medicine
DX: K52.9 Noninfective gastroenteritis and colitis, unspecified (principal)

== ENCOUNTER 2020-11-14 15:26 | Inpatient (IN) | payer MEDICARE, OTHER ==
[~2020-11-14] VITALS: Ht 162.6 cm; Wt 63.6 kg
[2020-11-14] VITALS (10 sets, daily range): BP systolic 116–178; BP diastolic 55–85; Ht 162.6 cm; Wt 63.6 kg
[~2020-11-14 15:26] MED LIST changes: +COZAAR25 MG PO; +LOMOTIL 2.5-0.1 EAC1 PO; +PRAVACHOL40 MG PO
--- NOTE | 2020-11-14 15:40 | NUR ---
URINE COLLECTED AND SENT TO THE LAB
[2020-11-14 15:49] LABS: BILIRUBIN NEGATIVE (NEGATIVE); KETONE NEGATIVE (NEGATIVE); NITRITE NEGATIVE (NEGATIVE); UROBILINOGEN NORMAL mg/dL (< 2)
[2020-11-14 15:56] LABS: WHITE CELLS - URINE 0-5 HPF (0-4)
[2020-11-14 15:58] LABS: SQUAMOUS EPITHELIAL 0-5 HPF (0-4)
[2020-11-14 15:59] LABS: BACTERIA FEW HPF (NONE SEEN)
[2020-11-14 16:21] LABS: BASOPHILS 0.3 % (0-2); EOSINOPHILS 0.8 % (0-7); HEMATOCRIT 37.6 % (36.0-48.0); HEMOGLOBIN 12.4 g/dL (12-16); IMMATURE GRANULOCYTES 0.2 % (0-5); LYMPHOCYTE ABS# 1.02 10x3/uL (1.18-3.74); LYMPHOCYTES 9.9 % (15-50); MCH 29.9 pg (26.0-34.0); MCV 90.6 fL (80.0-100.0); MEAN PLATELET VOLUME 9.5 fL (7.4-10.4); MONOCYTES 6.7 % (2-11); NEUTROPHIL ABS# 8.51 10x3/uL (1.56-6.13); NEUTROPHILS 82.1 % (40-80); PLATELET COUNT 224 10x3/uL (130-400); RBC 4.15 10x6/uL (4.00-5.40); RDW 12.7 % (11.5-14.5); WBC 10.4 10x3/uL (4.8-10.8)
[2020-11-14 16:29] LABS: INR 1.08 (0.85-1.17)
[2020-11-14 16:48] LABS: ANION GAP 10.8 mmol/L (8-16); CALCIUM 9.5 mg/dL (8.5-10.1); CARBON DIOXIDE 27.7 mmol/L (21.0-32.0); CREATININE - SERUM 0.8 mg/dL (0.6-1.3); POTASSIUM - SERUM 4.5 mmol/L (3.5-5.1)
[2020-11-14 17:03] LABS: ALBUMIN 3.8 g/dL (3.4-5.0); BILIRUBIN - TOTAL 0.7 mg/dL (0.2-1.3); PROTEIN - SERUM 6.7 g/dL (6.4-8.2)
--- NOTE | 2020-11-14 17:44 | NUR ---
SURGICAL, BLOOD TRANSFUSION AND ANESTHESIA CONSENTS SIGNED.
--- NOTE | 2020-11-14 17:56 | NUR ---
PT TO OR WITH ANESTHESIOLOGY
--- NOTE | 2020-11-14 18:06 | NUR ---
IAM GUILLAUME, SON AND MEDICAL POA [phone]
--- NOTE | 2020-11-14 20:09 | NUR ---
REC'D PATIENT TO ROOM 1212 FROM RECOVERY. PATIENT HAS NO S/S OF DISTRESS. VSS. PATIENT RATES PAIN 7/10 IN HER BACK AND HIP AT THIS TIME. PLACED SCD HOSE AND NONSLIP SOCKS ON PATIENT. GAVE PATIENT INCENTIVE SPIROMETER AND INSTRUCTED ON USE. PATIENT DEMONSTRATED USE. BED IN LOWEST POSITION, CALL LIGHT WITHIN REACH, AND BED ALARM ON.
[2020-11-15] VITALS (7 sets, daily range): BP systolic 105–139; BP diastolic 41–64
[2020-11-15 07:12] LABS: BASOPHILS 0.1 % (0-2); EOSINOPHILS 0.3 % (0-7); IMMATURE GRANULOCYTES 0.3 % (0-5); LYMPHOCYTE ABS# 0.55 10x3/uL (1.18-3.74); LYMPHOCYTES 8.1 % (15-50); MCH 29.7 pg (26.0-34.0); MCHC 31.6 g/dL (31.0-37.0); MEAN PLATELET VOLUME 10.1 fL (7.4-10.4); MONOCYTES 10.3 % (2-11); NEUTROPHILS 80.9 % (40-80)
[2020-11-15 07:13] LABS: HEMOGLOBIN 9.8 g/dL (12-16); MCV 93.9 fL (80.0-100.0); PLATELET COUNT 172 10x3/uL (130-400); WBC 6.8 10x3/uL (4.8-10.8)
--- NOTE | 2020-11-15 07:37 | OP ---
PATIENT NAME: THONG GUILLAUME MEDICAL RECORD: [id number] :40 LOCATION:D. D.1212 ADMISSION DATE:11/14/20 SURGEON: FLORIN TONY DO DATE OF OPERATION: 11/14/2020 PROCEDURE PERFORMED: Right karen hip arthroplasty. PREOPERATIVE DIAGNOSIS: Right femoral neck fracture. POSTOPERATIVE DIAGNOSIS: Right femoral neck fracture. INDICATIONS: Ms. 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 X-rays were taken and seen to have a displaced right femoral neck fracture. I did talk to her family and they said that she does take aspirin, but no other blood thinners and discussed with him the treatment option, which would be a karen hip arthroplasty. Her son was okay with that and was aware of the risks including infection, bleeding, damage to nerves and vessels, need for further surgery, continued pain, blood clots, blood loss, need for getting blood and even and they consented over the telephone. SURGEON: Florin Tony DO DESCRIPTION OF PROCEDURE: The patient was taken to the operative suite, laid in supine position, given general anesthetic and intubated. She was given a gram of Ancef and a gram of TXA, moved over to the [place] table and position. The right hip was prepped and draped in a sterile fashion. A timeout was performed. Everyone was in agreement with the correct side, site, patient, and procedure. I began by marking out the incision and make an incision down along the tensor fascia muscle. Once the tensor fascia muscle was exposed, I took the fascia into the muscle belly posteriorly and opened up the rectus interval of the rectus medially and tensor fascia chasity laterally. I then encountered the ascending branch of lateral femoral circumflex artery and tied it off and coagulated with the Aquamantys and cut it. I then put Hohmanns around the neck of the femur and then opened up the capsule and tagged the capsule, put Hohmanns around the neck of the femur intracapsularly and recut the femur as it was a subcapital femoral neck fracture. I then removed the cut I made and then used a drill and removed the femoral head. I then coagulated any bleeding with the Aquamantys and removed the pulvinar as well as ligamentum teres and coagulated the bleeding there. I then used a Weplay cutting canal finder and into the femoral canal. I then broached up to an 11 and 11 seemed to fit well and very tight in the femoral shaft and at the proximal femur and I trialed a -6 neck on a 43 head. I then reduced it. It was equal lengths 1. Left x-ray and the Echo stem fit very well in the femur. I then dislocated the hip and removed the trial implant and impacted in the 11 Echo stem. It fit very well and impacted on a bipolar head. I then reduced the hip. X-rays were taken. There were no fracture is seen in the femur and AP pelvis, there were equal length to the left and the right lesser trochanter is off the inferior ischial tuberosities. We then irrigated with 10% povidone iodine and 500 mL of saline solution and let sit for a few minutes and they irrigated out with over a liter of normal saline. Varghese kim, certified surgical under water assistant then put in the Kori and vancomycin and tobramycin powder and then closed the tensor fascia chasity with #1 Vicryl in a qsgwmz-la-egjzw and running locking stitch and then closed the skin with 2-0 Vicryl in inverted interrupted fashion, 4-0 Monocryl in the skin, OPERATIVE REPORT [id number] THONG GUILLAUME placed a Prineo glue on the skin and once it dried, Telfa and Tegaderm. She was then awakened and taken to recovery in stable condition. BLOOD LOSS: Approximately 200 mL. COMPLICATIONS: None. She was given another gram of TXA and taken to recovery. TRANSINT:[id number] Voice Confirmation ID: [id number] DOCUMENT ID: [id number] FLORIN TONY DO at 0737 CC: [id number] DICTATION DATE: 11/14/201908 HYDRAULIC PRESS TENDER: 11/15/20 0600 ADM IN [place] [id number] [place] [id number]
[2020-11-15 07:51] LABS: ALBUMIN 2.9 g/dL (3.4-5.0); ALKALINE PHOSPHATASE 42 U/L (30-120); ALT (SGPT) 17 U/L (10-68); BILIRUBIN - TOTAL 0.59 mg/dL (0.2-1.3); CALC OSMOLALITY 262 mosm/kg (275-300); CALCIUM 8.5 mg/dL (8.5-10.1); CARBON DIOXIDE 24.5 mmol/L (21.0-32.0); CHLORIDE - SERUM 101 mmol/L (98-107); CREATININE - SERUM 0.7 mg/dL (0.6-1.3); GLUCOSE 108 mg/dL (74-106); MAGNESIUM - SERUM 1.8 mg/dL (1.8-2.4); POTASSIUM - SERUM 4.8 mmol/L (3.5-5.1); PROTEIN - SERUM 5.3 g/dL (6.4-8.2); SODIUM 131 mmol/L (136-145); THYROID STIMULATING HORMONE 1.36 uIU/mL (0.36-3.74); TROPONIN-I 0.025 ng/mL (0.000-0.060); UREA NITROGEN 11 mg/dL (7-18); eGFR NON AFRICAN AMERICAN 85 mL/min (90-120)
--- NOTE | 2020-11-15 07:56 | NUR ---
AWAKE AND ALERT. ORIENTED TO SELF. REORIENTED TO TIME AND PLACE PER STAFF. LUNGS ARE CLEAR BILATERALLY, NO COUGH NOTED. REQUESTED AND GIVEN 50MG ULTRAM PO FOR C/O RIGHT HIP PAIN LEVEL 5. WILL MONITOR. SKIN IS INTACT WITHOUT REDNESS EXCEPT INCISION TO RIGHT GROIN AREA AND LEFT FOREARM ABRASION WHICH BOTH HAVE DRY INTACT DRESSINGS IN PLACE. IV TO RIGHT FOREARM IS PATENT WITHOUT REDNESS AT INSERTION SITE. EUBANKS PATENT WITH CLEAR YELLOW URINE. C/O NAUSEA BUT REFUSED ZOFRAN FOR SAME. WILL MONITOR.
--- NOTE | 2020-11-15 09:00 | NUR ---
UP TO BSC WITH ONE PERSON MIN ASSIST. NO BM AT THIS TIME. TOOK AM MEDS WITHOUT DIFFICULTY. ATE LESS THAN HALF OF BREAKFAST TRAY. DENIES NEEDS.
--- NOTE | 2020-11-15 10:30 | NUR ---
SITTING UP IN CHIAR AT BEDSIDE. CONTINUES CONFUSED TO TIME AND SITUATION. WILL MONITOR.
--- NOTE | 2020-11-15 13:10 | NUR ---
REFUSED LUNCH TRAY. REQUESTED AND GIVEN PB&J SANDWICH. ATE ALL OF SAME. CONTINUES TO BE CONFUSED.
--- NOTE | 2020-11-15 14:00 | NUR ---
UP TO BR WTIH ONE PERSON MIN ASSIST. VOIDED 200cc CLEAR YELLOW URINE WITHOUT DIFFICULTY. REPOSITIONED IN BED FOR COMFORT.
--- NOTE | 2020-11-15 14:14 | NUR ---
EUBANKS D/C WITH TIP INTACT WITHOUT COMPLICATIONS. TOLERATED WITHOUT C/O PAIN OR DISCOMFORT.
--- NOTE | 2020-11-15 17:54 | NUR ---
ATE ALL OF SOUP FOR SUPPER. WHEN PB&J SANDWICH DELIVERED HAD ABOUT 100cc EMESIS. DENIES SOUR STOMACH. IV TO RIGHT FOREARM LEAKING. D/C WITH CATHETER INTACT. RESITED TO RIGHT WRIST AFTER 2 ATTEMPTS WITH 22 GAUGE. TOLERATED WITHOUT C/O PAIN OR DISCOMFORT. SKIN CARE AND LINENS CHANGED PER STAFF. WILL MONITOR.
--- NOTE | 2020-11-15 19:14 | NUR ---
FOUND UP IN ROOM PER SELF. IV OUT WITH CATHETER INTACT. CLEANED UP PER STAFF. ASSISTED TO BSC. VOIDED 100cc CLEAR YELLOW URINE. POSITIONED IN BED FOR COMFORT. BED ALARM ON AT THIS TIME.
--- NOTE | 2020-11-15 19:15 | NUR ---
PATIENT RESTING IN BED WITH NO S/S OF DISTRESS. PATIENT DENIES NEEDS AT THIS TIME. BED IN LOWEST POSITION, CALL LIGHT WITHIN REACH, AND BED ALARM ON. ENCOURAGED PATIENT TO CALL WITH NEEDS.
--- NOTE | 2020-11-15 20:11 | NUR ---
ADMINISTERED MEDS PER ORDERS. PATIENT MINERVA WELL. ENCOURAGED TO CALL WITH NEEDS.
[2020-11-16 00:25] VITALS: BP 114/54
[2020-11-16 04:00] VITALS: BP 140/54
[2020-11-16 07:15] VITALS: BP 139/68
--- NOTE | 2020-11-16 07:15 | NUR ---
PT LYING IN BED RESTING. RESP EVEN AND UNLABORED. NO DISTRESS NOTED. PT STATES PAIN IN HER BACK. REPOSITIONED FOR COMFORT. PRN TRAMADOL ADMINISTERED. SCDs IN PLACE. DRESSING NOTED TO RIGHT HIP. BILATERAL PULSES PALPABLE AND EVEN. DRESSING C/D/I. CALL LIGHT IN REACH. BED ALARM IN PLACE AND FUNCTIONING PROPERLY. SIDE RAILS X2. BED IN LOWEST POSITION.
[2020-11-16 10:08] LABS: BASOPHILS 0.1 % (0-2); EOSINOPHILS 0.4 % (0-7); HEMOGLOBIN 9.9 g/dL (12-16); IMMATURE GRANULOCYTES 0.3 % (0-5); LYMPHOCYTE ABS# 0.45 10x3/uL (1.18-3.74); LYMPHOCYTES 5.9 % (15-50); MCH 29.3 pg (26.0-34.0); MCHC 31.9 g/dL (31.0-37.0); MEAN PLATELET VOLUME 9.2 fL (7.4-10.4); MONOCYTES 8.5 % (2-11); NEUTROPHIL ABS# 6.51 10x3/uL (1.56-6.13); NEUTROPHILS 84.8 % (40-80); PLATELET COUNT 194 10x3/uL (130-400); RBC 3.38 10x6/uL (4.00-5.40); RDW 12.9 % (11.5-14.5); WBC 7.7 10x3/uL (4.8-10.8)
--- NOTE | 2020-11-16 10:18 | NUR ---
REHAB PRESCREENING Rehab referral received and chart reviewed. Ms. Lerner is a good candidate for ARU. We will accept her when her physicians feel she is appropriate for discharge. Thank you for this referral! Sarah Lezama
[2020-11-16 10:22] LABS: ALBUMIN 2.8 g/dL (3.4-5.0); BILIRUBIN - TOTAL 0.61 mg/dL (0.2-1.3); CALCIUM 8.3 mg/dL (8.5-10.1); CARBON DIOXIDE 29.1 mmol/L (21.0-32.0); MAGNESIUM - SERUM 1.9 mg/dL (1.8-2.4); POTASSIUM - SERUM 4.1 mmol/L (3.5-5.1)
[2020-11-16 10:24] LABS: MCV 91.7 fL (80.0-100.0)
[2020-11-16 12:00] VITALS: BP 130/52
[2020-11-16] MEDS ORDERED: IPRAT-ALBUT 0.5-3 ML INH (12:46)
[2020-11-16] MEDS ORDERED: ZOFRAN4 MG PO (12:47)
[2020-11-16] MEDS ORDERED: ACETAMINOPHEN500 M1 PO (12:47)
[2020-11-16] MEDS ORDERED: ULTRAM50 MG PO (12:47)
--- NOTE | 2020-11-16 15:41 | NUR ---
PATIENT WALKED 110 FEET WITH WALKER WITH MIN ASST.
--- NOTE | 2020-11-16 15:58 | NUR ---
I have reviewed this patient and I concur with the Shift Assessment completed by the Licensed Practical Nurse today this shift.
== END 2020-11-16 16:20 | DRG 522 ==
LOC: D.ER 15:26 → D.EDHOLD 17:46 → D.M3 17:46
PROVIDERS: Emergency Medicine; Family Medicine; Orthopaedic Surgery; ADMIT Family Medicine; ATTEND Family Medicine
PROC: 0SR90JZ Replacement of Right Hip Joint with Synthetic Substitute, Open Approach (ICD-10-PCS; principal; 2020-11-14 17:58)
DX: S72.001A Fracture of unspecified part of neck of right femur, initial encounter for closed fracture (principal); E87.1 Hypo-osmolality and hyponatremia; W19.XXXA Unspecified fall, initial encounter; I10 Essential (primary) hypertension; I25.10 Atherosclerotic heart disease of native coronary artery without angina pectoris; E78.5 Hyperlipidemia, unspecified; K21.9 Gastro-esophageal reflux disease without esophagitis; F41.9 Anxiety disorder, unspecified; M81.0 Age-related osteoporosis without current pathological fracture; R41.3 Other amnesia

== ENCOUNTER 2020-11-16 16:32 | Inpatient (IN) | payer MEDICARE, OTHER ==
[~2020-11-16] VITALS: Ht 162.6 cm; Wt 57.6 kg
--- NOTE | 2020-11-16 16:15 | NUR ---
RECIEVED FROM ACUTE TO 1116;ORIENTED TO ROOM AND SURROUNDINGS.HERE FOR REHAB,INCREASED STRENGTHENING.CL IN REACH.
[~2020-11-16 16:32] MED LIST changes: +ACETAMINOPHEN500 M1 PO; +IPRAT-ALBUT 0.5-3 ML INH; +ULTRAM50 MG PO; +ZOFRAN4 MG PO
[2020-11-16 17:03] VITALS: BP 157/68; BMI 21.8
--- NOTE | 2020-11-16 19:23 | NUR ---
AWAKE AND ALERT. RIGHT HIP DRESSING INTACT WITH OLD BLOODY DRAINAGE NOTED. UP TO BATHROOM EVERY 20-30 MINUTES AND DOES NOT CALL FOR ASSISTANCE BEFORE GETTING OUT OF BED. REMINDED TO ALWAYS CALL FOR ASSISTANCE. PATIENT EASILY AGIATED WHEN GIVEN INSTRUCTIONS.
[2020-11-16 20:05] VITALS: BP 154/77
--- NOTE | 2020-11-17 01:23 | NUR ---
ASSISTED TO BATHROOM AND BACK TO BED. MEDICATED FOR PAIN. SEE MAR.
--- NOTE | 2020-11-17 05:23 | NUR ---
NO ACUTE CHANGES IN CONDITION THIS SHIFT. RESTING IN BED WITH NO DISTRESS NOTED. UP NUMEROUS TIMES TO BATHROOM. CONFUSION NOTED TO TIME AND SITUATION. BED ALARM ON.
[2020-11-17 07:15] LABS: ANION GAP 9.4 mmol/L (8-16); CALCIUM 8.8 mg/dL (8.5-10.1); CARBON DIOXIDE 31.9 mmol/L (21.0-32.0); CREATININE - SERUM 0.9 mg/dL (0.6-1.3); POTASSIUM - SERUM 4.3 mmol/L (3.5-5.1)
[2020-11-17 07:28] LABS: BASOPHILS 0.2 % (0-2); EOSINOPHILS 1.6 % (0-7); HEMATOCRIT 33.3 % (36.0-48.0); HEMOGLOBIN 10.6 g/dL (12-16); IMMATURE GRANULOCYTES 0.1 % (0-5); LYMPHOCYTE ABS# 0.86 10x3/uL (1.18-3.74); LYMPHOCYTES 10.7 % (15-50); MCH 29.2 pg (26.0-34.0); MCHC 31.8 g/dL (31.0-37.0); MCV 91.7 fL (80.0-100.0); MEAN PLATELET VOLUME 9.8 fL (7.4-10.4); MONOCYTES 9.8 % (2-11); NEUTROPHIL ABS# 6.25 10x3/uL (1.56-6.13); NEUTROPHILS 77.6 % (40-80); RBC 3.63 10x6/uL (4.00-5.40); RDW 12.9 % (11.5-14.5); WBC 8.1 10x3/uL (4.8-10.8)
[2020-11-17 07:29] LABS: PLATELET COUNT 251 10x3/uL (130-400)
[2020-11-17 08:00] VITALS: BP 171/97
--- NOTE | 2020-11-17 08:00 | NUR ---
CHECKING AM VITALS AND NOTED PT'S PULSE OX READING WAS 77.NAILBEDS REMAINED PINK.BREATHING WAS SHALLOW.AROUSED TO WAKE-UP STATED SHE WAS SLEEPING.PULSE REG AND 110.AFEBRILE.SHIFT ASSMT DONE AND PLACED ON O2 AT 2L/NC.O2 SAT QUICKLY RISED TO 95-96%. WILL LEAVE ON O2 FOR KNOW AND TRY TO WEAN OR USE NEED.
--- NOTE | 2020-11-17 09:51 | NUR ---
PATIENT AMITTED TO REHAB FROM ACUTE FLOOR. DISCHARGE PLANS ARE FOR HER TO RETURN TO HER HOME. WILL CONTINUE TO FOLLOW WITH PATIENT. WILL REVISIT WITH PATIENT LATER IN DAY.
[2020-11-17 14:33] VITALS: Ht 162.6 cm; Wt 57.6 kg
[2020-11-17 19:20] VITALS: BP 144/79
--- NOTE | 2020-11-17 19:43 | NUR ---
AWAKE AND ALERT. RESTING IN BED WITH RESPIRAITONS UNLABORED. DRESSING TO RIGHT HIP INTACT. DRESSING TO LEFT FOREARM SKIN TEAR DRY AND INTACT. CURRENTLY IN DROPLET ISOLATION RELATED TO PUI.
--- NOTE | 2020-11-18 04:59 | NUR ---
QUIET HOURS. NO ACUTE CHANGES IN CONDITION THIS SHIFT. SLEPT IN LONGER INTERVALS TONIGHT THAN THE NIGHT BEFORE. NO DISTRESS NOTED.
[2020-11-18 06:47] LABS: CALCIUM 8.5 mg/dL (8.5-10.1); CARBON DIOXIDE 32.9 mmol/L (21.0-32.0); CREATININE - SERUM 0.8 mg/dL (0.6-1.3); POTASSIUM - SERUM 3.9 mmol/L (3.5-5.1)
[2020-11-18 07:27] VITALS: BP 143/73
[2020-11-18 08:06] LABS: BASOPHILS 0.3 % (0-2); EOSINOPHILS 3.1 % (0-7); HEMATOCRIT 29.6 % (36.0-48.0); HEMOGLOBIN 9.5 g/dL (12-16); IMMATURE GRANULOCYTES 0.2 % (0-5); LYMPHOCYTE ABS# 0.79 10x3/uL (1.18-3.74); LYMPHOCYTES 13.1 % (15-50); MCH 29.6 pg (26.0-34.0); MCHC 32.1 g/dL (31.0-37.0); MCV 92.2 fL (80.0-100.0); MEAN PLATELET VOLUME 9.6 fL (7.4-10.4); MONOCYTES 12.1 % (2-11); NEUTROPHILS 71.2 % (40-80); PLATELET COUNT 252 10x3/uL (130-400); RBC 3.21 10x6/uL (4.00-5.40); RDW 12.8 % (11.5-14.5)
--- NOTE | 2020-11-18 16:23 | NUR ---
RESTING QUIETLY IN BED. HAS BEEN IN HER BED WHEN NOT IN THEARPY ALL DAY. SHE C/O BEING TIRED TODAY. NO S/S DISTRESS. CALL LIGHT IN REACH
--- NOTE | 2020-11-18 19:00 | NUR ---
RECEIVED PT SITTING UP IN BED VISITING WITH FAMILY. ALERT AND ORIENTED X3. SHORT MEMORY RECALL, NEEDS CONSISTANT REDIRECTING. IMPULSIVE GETS UP WITHOUT CALLING ROXANE ALARM ON, PT DISREGARDS ALARM SOUNDING. NO DISTRESS NOTED. LEFT FOREARM DRESSING INTACT. RIGHT HIP DRESSING INTACT. CALL LIGHT AND WATER WITHIN REACH. FALL PRECAUTIONS IN PLACE. CPOC
[2020-11-18 20:29] VITALS: BP 146/60
--- NOTE | 2020-11-19 01:32 | NUR ---
PT LYING IN BED ON LEFT SIDE EYES CLOSED RESTING. RR EVEN AND UNLABORED. CALL LIGHT WITHIN REACH. ROXANE ALARM ON. CPOC
--- NOTE | 2020-11-19 05:15 | NUR ---
PT LYING IN BED SUPINE EYES CLOSED RESTING. HOB ELEVATED. NO DISTRESS NOTED. CALL LIGHT WITHIN REACH. CPOC
[2020-11-19 08:06] VITALS: BP 152/74
--- NOTE | 2020-11-19 12:52 | NUR ---
SITTING UP IN BED DOING A PUZZLE BOOK. JUST FINISHED LUNCH AND USED RESTROOM. DENIES NEEDS. POOR RECALL NOTED. CALL LIGHT IN REACH
--- NOTE | 2020-11-19 15:21 | NUR ---
CARE TEAM MEETING: PATIENT IS NEW TO UNIT AND WILL BE RA AT NEXT MEETING. WILL CONTINUE TO FOLLOW WITH PATIENT.
--- NOTE | 2020-11-19 19:00 | NUR ---
RECEIVED PT LYING IN BED VISITING WITH SON. PT ALERT AND ORIENTED X2. REORIENTED TO TIME AND SITUATION. RIGHT HIP DRESSING INTACT. LEFT FOREARM DRESSING INTACT. DENIES ANY NEEDS OR PAIN. ROXANE ALARM ON. CALL LIGHT AND PERSONAL ITEMS IN REACH. CPOC
[2020-11-19 20:28] VITALS: BP 137/62
--- NOTE | 2020-11-20 02:22 | NUR ---
PT LYING IN BED SUPINE EYES CLOSED RESTING. HOB ELEVATED. RR EVEN AND UNLABORED. CALL LIGHT WITHIN REACH. CPOC
--- NOTE | 2020-11-20 03:00 | NUR ---
ASSISTED PT TO RESTROOM AND BACK TO BED WITH MIN ASSIST USING WALKER. WHILE IN RESTROOM PT PULLED OFF RIGHT HIP DRESSING. INCISION TAPE CLOSURE INTACT. CLEANSED WITH NS, PATTED DRY WITH 4X4, COVERED WITH SMALL ISLAND DRESSING. DATE, TIMED, INITIALED. PT TOLERATED WELL. PT LYING IN BED COMFORTABLY. HOB ELEVATED. CALL LIGHT AND WATER WITHIN REACH. CPOC
--- NOTE | 2020-11-20 05:00 | NUR ---
ASSISTED PT TO RESTROOM AND BACK TO BED WITH MIN ASSIST USING WALKER. C/O /10 ACHING RIGHT HIP PAIN. REQUESTS TYLENOL. NO OTHER NEEDS VOICED. CALL LIGHT AND WATER WITHIN REACH. FALL PRECAUTIONS IN PLACE CPOC
[2020-11-20 08:00] VITALS: BP 159/78
[2020-11-20 08:16] LABS: BASOPHILS 0.7 % (0-2); EOSINOPHILS 4.1 % (0-7); HEMATOCRIT 30.9 % (36.0-48.0); HEMOGLOBIN 9.7 g/dL (12-16); IMMATURE GRANULOCYTES 0.2 % (0-5); LYMPHOCYTE ABS# 0.91 10x3/uL (1.18-3.74); LYMPHOCYTES 21.8 % (15-50); MCH 28.6 pg (26.0-34.0); MCHC 31.4 g/dL (31.0-37.0); MCV 91.2 fL (80.0-100.0); MONOCYTES 15.8 % (2-11); NEUTROPHILS 57.4 % (40-80); PLATELET COUNT 293 10x3/uL (130-400); RBC 3.39 10x6/uL (4.00-5.40); RDW 12.8 % (11.5-14.5); WBC 4.2 10x3/uL (4.8-10.8)
[2020-11-20 08:32] LABS: ANION GAP 4.7 mmol/L (8-16); CALCIUM 8.7 mg/dL (8.5-10.1); CARBON DIOXIDE 34.5 mmol/L (21.0-32.0); CREATININE - SERUM 0.8 mg/dL (0.6-1.3); POTASSIUM - SERUM 4.2 mmol/L (3.5-5.1)
--- NOTE | 2020-11-20 16:03 | NUR ---
HAS CALLED FOR ASST TO GO TO BATHROOM X2 TODAY INSTEAD OF GETTING UP BY HERSELF. STILL HAS MEMORY AND RECALL DIFICITS. DENIES PAIN. SHE PEELED OFF HER CLEAR TEGADERM COVERING HER RT ANTERIOR HIP INCISION SO BORDER DSG WAS APPLIED JUST TO ADD PROTECTION. CALL LIGHT IN REACH. BED IN LOWEST POSITION. SIDE RAILS UP X2
--- NOTE | 2020-11-20 19:17 | NUR ---
AWAKE AND ALERT. RESTING IN BED WITH RESPIRATIONS UNLABORED. NO DISTRESS NOTED. CALL LIGHT IN REACH.
[2020-11-20 19:36] VITALS: BP 136/67
--- NOTE | 2020-11-21 01:16 | NUR ---
SLEEPING WITH RESPIRATIONS UNLABORED. NO DISTRESS NOTED.
--- NOTE | 2020-11-21 05:15 | NUR ---
QUIET HOURS. NO ACUTE CHANGES IN CONDITION THIS SHIFT. RESTING IN BED WITH NO DISTRESS NOTED.
--- NOTE | 2020-11-21 08:00 | NUR ---
SHIFT ASSMT COMPLETED.CL IN REACH.TAKEN TO BATHROOM AND VOIDED.RETURNED TO BED.BREAKFAST GIVEN.CL IN REACH.
[2020-11-21 10:21] VITALS: BP 147/68
--- NOTE | 2020-11-21 12:00 | NUR ---
SITTING UP IN WC,EATING LUNCH.
--- NOTE | 2020-11-21 19:45 | NUR ---
AWAKE AND ALERT. RESTING IN BED WITH RESPIRATIONS UNLABORED. MEDICATED FOR C/O PAIN. SEE MAR. VISITOR IN ROOM. CALL LIGHT IN REACH.
[2020-11-21 20:02] VITALS: BP 132/57
--- NOTE | 2020-11-22 05:08 | NUR ---
QUIET HOURS. NO ACUTE CHANGES IN CONDITION THIS SHIFT. RESPIRATIONS UNLABORED. NO DISTRESS NOTED.
--- NOTE | 2020-11-22 08:00 | NUR ---
SHIFT ASSMT COMPLETED.CL IN REACH.PLEASANTLY CONFUSED BUT COOPERATIVE.BREAKFAST GIVEN.
--- NOTE | 2020-11-22 12:00 | NUR ---
EATING LUNCH;SITTING UP IN WC.
[2020-11-22 14:58] VITALS: BP 127/58
[2020-11-22 19:00] VITALS: BP 146/67
--- NOTE | 2020-11-22 19:33 | NUR ---
AWAKE AND ALERT. RESTING IN BED WATCHING TV. RESPIRATIONS UNLABORED. DRESSING INTACT TO RIGHT HIP. CALL LIGHT IN REACH.
--- NOTE | 2020-11-23 00:31 | NUR ---
RESTING QUIETLY IN BED WITH NO DISTRESS NOTED.
--- NOTE | 2020-11-23 04:58 | NUR ---
QUIET HOURS. NO ACUTE CHANGES IN CONDITION THIS SHIFT. MEDICATED FOR C/O PAIN. SEE MAR. CONTINUES TO HAVE PERIODS OF CONFUSION. SAFETY MEASURES IN PLACE.
[2020-11-23 07:51] VITALS: BP 112/54
[2020-11-23 09:01] LABS: CALCIUM 9.1 mg/dL (8.5-10.1); CREATININE - SERUM 1.1 mg/dL (0.6-1.3)
[2020-11-23 09:17] LABS: BASOPHILS 0.3 % (0-2); EOSINOPHILS 4.1 % (0-7); HEMATOCRIT 35.3 % (36.0-48.0); HEMOGLOBIN 11.1 g/dL (12-16); IMMATURE GRANULOCYTES 0.3 % (0-5); LYMPHOCYTE ABS# 1.49 10x3/uL (1.18-3.74); LYMPHOCYTES 22.7 % (15-50); MCH 29.2 pg (26.0-34.0); MCHC 31.4 g/dL (31.0-37.0); MCV 92.9 fL (80.0-100.0); MONOCYTES 10.2 % (2-11); NEUTROPHIL ABS# 4.08 10x3/uL (1.56-6.13); NEUTROPHILS 62.4 % (40-80); PLATELET COUNT 481 10x3/uL (130-400); RDW 12.8 % (11.5-14.5); WBC 6.6 10x3/uL (4.8-10.8)
--- NOTE | 2020-11-23 13:02 | NUR ---
Nutrition Follow-up Diet: Cardiac PO intake: ~75% average x last 9 meals. She reports that her appetite is "pretty good." She does not remember when her last BM was. States that she does not like cheese. Last BM: None recorded since admit. Wt: 127# (11/17/20) Meds noted: micro-k, lasix. Labs reviewed Recommend continue current diet. Will continue to honor food preferences within diet restrictions. RD will follow-up within 7 days.
--- NOTE | 2020-11-23 18:52 | NUR ---
RECEIVED PT LYING IN BED VISITING WITH SON. ALERT AND ORIENTED X3. DENIES ANY NEEDS OR PAIN. NO DISTRESS NOTED. RIGHT HIP DRESSING INTACT. CALL LIGHT AND WATER WITHIN REACH. FALL PRECAUTIONS IN PLACE. CPOC
[2020-11-23 21:41] VITALS: BP 152/75
--- NOTE | 2020-11-23 23:27 | NUR ---
PT LYING IN BED ON LEFT SIDE EYES CLOSED RESTING. RR EVEN AND UNLABORED. CALL LIGHT WITHIN REACH. CPOC
--- NOTE | 2020-11-24 03:38 | NUR ---
PT LYING IN BED ON LEFT SIDE EYES CLOSED RESTING. NO DISTRESS NOTED. CALL LIGHT WITHIN REACH. CPOC
[2020-11-24 08:06] VITALS: BP 128/55
--- NOTE | 2020-11-24 10:02 | NUR ---
HAS BEEN UP WORKING WITH THERAPY. STILL CONFUSED TO TIME AND SURROUNDINGS BUT COOPERATIVE TO SIMPLE REQUESTS. DSG TO RT HIP INTACT. NO S/S INFECTION NOTED TO RT HIP. CALL LIGHT IN REACH
--- NOTE | 2020-11-24 17:31 | NUR ---
RESTING QUIETLY IN BED. EYES CLOSED. WAKES EASILY TO VERBAL STEMULI. STILL CONFUSED. CALL LIGHT IN REACH
--- NOTE | 2020-11-24 18:50 | NUR ---
RECEIVED PT LYING IN BED VISITING WITH SON. ALERT AND ORIENTED X2. REORIENTED TO TIME AND SITUATION. DENIES ANY NEEDS OR PAIN. NO DISTRESS NOTED. CALL LIGHT WITHIN REACH. FALL PRECAUTIONS IN PLACE. CPOC
[2020-11-24 20:15] VITALS: BP 132/56
--- NOTE | 2020-11-25 02:49 | NUR ---
PT LYING IN BED SUPINE EYES CLOSED RESTING. HOB ELEVATED. RR EVEN AND UNLABORED. CALL LIGHT WITHIN REACH. ROXANE ALARM ON. CPOC
[2020-11-25 07:49] VITALS: BP 145/60
--- NOTE | 2020-11-25 08:00 | NUR ---
SHIFT ASSMT COMPLETED.CL IN REACH.BREAKFAST GIVEN.MINERVA THERAPY.
[2020-11-25 09:52] LABS: BASOPHILS 0.8 % (0-2); EOSINOPHILS 4.2 % (0-7); HEMATOCRIT 35.1 % (36.0-48.0); HEMOGLOBIN 11.1 g/dL (12-16); IMMATURE GRANULOCYTES 0.3 % (0-5); LYMPHOCYTE ABS# 0.95 10x3/uL (1.18-3.74); LYMPHOCYTES 14.8 % (15-50); MCH 29.3 pg (26.0-34.0); MCHC 31.6 g/dL (31.0-37.0); MCV 92.6 fL (80.0-100.0); MEAN PLATELET VOLUME 8.7 fL (7.4-10.4); MONOCYTES 8.3 % (2-11); NEUTROPHIL ABS# 4.59 10x3/uL (1.56-6.13); NEUTROPHILS 71.6 % (40-80); PLATELET COUNT 423 10x3/uL (130-400); RBC 3.79 10x6/uL (4.00-5.40); RDW 12.7 % (11.5-14.5); WBC 6.4 10x3/uL (4.8-10.8)
[2020-11-25 10:01] LABS: ANION GAP 6.2 mmol/L (8-16); CALCIUM 8.8 mg/dL (8.5-10.1); CARBON DIOXIDE 32.9 mmol/L (21.0-32.0); CREATININE - SERUM 1.2 mg/dL (0.6-1.3); POTASSIUM - SERUM 4.1 mmol/L (3.5-5.1)
--- NOTE | 2020-11-25 12:00 | NUR ---
SITTING UP EATING LUNCH.CL IN REACH.
--- NOTE | 2020-11-25 13:28 | NUR ---
CARE TEAM MEETING: PATIENT IS PROGRESSING IN THERAPY. HER TENATIVE DC DATE IS 11/27/20. WILL CONTINUE TO FOLLOW WITH PATIENT.
--- NOTE | 2020-11-25 16:00 | NUR ---
RESTING QUIETLY IN BED.CL IN REACH.
--- NOTE | 2020-11-25 19:40 | NUR ---
AWAKE AND ALERT. RESTING IN BED WITH RESPIRATIONS UNLABORED. NO DISTRESS NOTED. MEDICATED FOR C/O HIP PAIN. SEE MAR.
[2020-11-25 20:35] VITALS: BP 124/65
--- NOTE | 2020-11-26 01:30 | NUR ---
RESTING IN BED. HAS BEEN SOMEWHAT RESTLESS TONIGHT AND UP TO BATHROOM NUMEROUS TIME. VOIDS VERY SMALL AMOUNTS. WILL MONITOR.
--- NOTE | 2020-11-26 05:25 | NUR ---
QUIET HOURS. NO ACUTE CHANGES IN CONDITION THIS SHIFT. NO DISTRESS NOTED.
[2020-11-26 08:00] VITALS: BP 149/57
--- NOTE | 2020-11-26 08:00 | NUR ---
SHIFT ASSMT COMPLETED.CONFUSED MORE TODAY THAN USUAL.DID NOT SLEEP LAST NIGHT.
--- NOTE | 2020-11-26 12:00 | NUR ---
SITTING UP EATING LUNCH.
--- NOTE | 2020-11-26 12:33 | RHP ---
PATIENT: THONG GUILLAUME MEDICAL RECORD: [id number] ACCOUNT: [id number] [facility] AD[facility] DATE: 11/16/20 REHABILITATION HISTORY AND PHYSICAL EXAMINATION POST ADMISSION PHYSICIAN EXAMINATION ADMITTING DIAGNOSIS: Dislocated and angulated right femoral neck fracture. HISTORY OF PRESENT ILLNESS: The patient is admitted to the rehab secondary to a right karen-hip arthroscopy. She was found to have an acute displaced and angulated right femoral neck fracture. She is an 80-year-old female patient who has got history of hypertension, coronary artery disease, aortic stenosis, hyperlipidemia, reflux, memory loss, osteoarthritis. The patient apparently had a fall injuring this hip. Dr. Davila was consulted. He completed a right total hip karen-arthroscopy on 11/14/2020. The patient apparently lives alone, was independent with ambulation and ADLs prior to this without use of an assistive device. She is currently being monitored closely for lab values, cognition, medical adjustment. She has got decreased activity to tolerance, decreased strength, balance deficits, decreased range of motion, dyspnea on exertion. She is a high fall risk and self-care deficits. These are all barriers to her discharge home. She has been ambulating 15 feet with a rolling walker and is min-to-mod assist for ADLs. She will require inpatient rehab to get back to her prior level of functioning. COMORBIDITIES: Include hypertension, hyperlipidemia, gastroesophageal reflux disease, memory loss, anxiety, osteoarthritis and osteoporosis. PAST MEDICAL HISTORY: Significant for memory loss. Got a history of osteoarthritis, got a history of postmenopausal. PAST SURGICAL HISTORY: Includes a trigger finger release. She has had bilateral breast biopsies, hysterectomy, appendectomy. ALLERGIES: CODEINE, LEVAQUIN AND MEPERIDINE. CURRENT MEDICATIONS: Include Pravachol 40 mg daily, she is on Cozaar 25 mg daily, potassium 10 mEq daily, Lasix 20 mg daily, aspirin chewable 81 mg daily, polyethylene glycol 17 grams in 8 ounce of water daily, tramadol 50 mg every 4 hours, Lomotil one tab every 4 hours p.r.n., Zofran 4 mg every 4 hours p.r.n., Tylenol 500 mg every 4 hours p.r.n. and DuoNeb updrafts. HABITS: No alcohol or tobacco use. FAMILY HISTORY: Noncontributory. SOCIAL HISTORY: The patient hopes to return back home and get back to her prior level of functioning. REVIEW OF SYSTEMS: GENERAL: Does complain of weakness and fatigue. HEENT: Denies cold, cough or congestion. CARDIOVASCULAR: Denies any chest. PHYSICAL EXAMINATION: VITAL SIGNS: Stable, afebrile. HISTORY AND PHYSICAL [id number] THONG GUILLAUME GENERAL: Elderly female in no acute distress upon exam. HEENT: Normocephalic and atraumatic. Mucosa moist. NECK: Supple. No lymphadenopathy. LUNGS: Clear in upper bhat. No wheezing or rales. HEART: Regular rate and rhythm. She does have a holosystolic murmur. ABDOMEN: Soft, benign and nondistended. Positive bowel sounds times 4. EXTREMITIES: No clubbing, cyanosis or edema. Postoperative area looks pretty good. NEUROLOGIC: She does have some weakness and balance deficits. LABORATORY DATA: Her white count is 8.1, H&H of 10.6 and 33.3 and platelet count is 251. Sodium 133, potassium 4.3, BUN and creatinine of 12 and 0.9 and blood sugar is noted to be 97. ASSESSMENT: This is an 80-year-old female patient admitted to rehab with a working diagnosis of status post karen-arthroscopy secondary to hip fracture. The patient has potential to make improvement. We instituted the following multidisciplinary therapies including not limited to physical, occupational, respiratory, speech, nutritional services, prosthetics and orthotics. Given her complex medical condition and risks for more complications, rehabilitation services cannot be provided at a low level of care such as senior living facility. PLAN: 1. Admit to [facility] for inpatient therapy to include the following disciplines; A. Physical therapy to improve gait all transfer skills and bed mobility to a modified independent level. B. Occupational therapy to improve activities of daily living. C. Case management to help with discharge planning and placement options. D. Nutrition to assist with nutritional needs. E. Rehabilitation nursing to assist in monitoring the patient's underlying medical conditions and to assist with any type of bowel or bladder management. 2. The patient's current medication and medical care will be continued. 3. The patient will be placed on standard fall precautions. 4. The patient's estimated length of stay is approximately 7-10 days. 5. Discuss the patient during care team staff meeting tomorrow at lunch. We will continue on appropriate medications. We will watch for any signs of blood loss anemia and I will see again in the a.m. TRANSINT:[id number] Voice Confirmation ID: [id number] DOCUMENT ID: [id number] LOCO notes whether there has been none or any medical/functional change since admission: - No change since preadmission screen. LOCO attests patient continues to be appropriate for IRF: - Continues to be appropriate. HISTORY AND PHYSICAL [id number] THONG GUILLAUME,LEI GARRIDO MD at 1233 CC: [id number] DICTATION DATE: 11/17/20 1014 GOLD MINER: 11/17/20 1207 ADM IN [place] [id number] [place] [address]
--- NOTE | 2020-11-26 18:56 | NUR ---
AWAKE AND ALERT. SITTING IN WHEELCHAIR VISITING WITH SON. RESPIRATIONS UNLABORED. NO DISTRESS NOTED. CALL LIGHT IN REACH.
[2020-11-26 20:00] VITALS: BP 107/57
--- NOTE | 2020-11-27 01:40 | NUR ---
SLEEPING WITH RESPIRATIONS UNLABORED. NO DISTRESS NOTED.
--- NOTE | 2020-11-27 05:04 | NUR ---
QUIET HOURS. NO ACUTE CHANGES IN CONDITION THIS SHIFT. RESTING IN BED WITH NO DISTRESS NOTED.
[2020-11-27 07:12] LABS: BASOPHILS 0.8 % (0-2); EOSINOPHILS 5.1 % (0-7); HEMATOCRIT 31.9 % (36.0-48.0); HEMOGLOBIN 10.1 g/dL (12-16); IMMATURE GRANULOCYTES 0.2 % (0-5); LYMPHOCYTE ABS# 1.02 10x3/uL (1.18-3.74); LYMPHOCYTES 20.7 % (15-50); MCH 28.8 pg (26.0-34.0); MCHC 31.7 g/dL (31.0-37.0); MCV 90.9 fL (80.0-100.0); MEAN PLATELET VOLUME 8.8 fL (7.4-10.4); MONOCYTES 9.7 % (2-11); NEUTROPHIL ABS# 3.13 10x3/uL (1.56-6.13); NEUTROPHILS 63.5 % (40-80); PLATELET COUNT 381 10x3/uL (130-400); RBC 3.51 10x6/uL (4.00-5.40); RDW 12.9 % (11.5-14.5); WBC 4.9 10x3/uL (4.8-10.8)
[2020-11-27 07:20] VITALS: BP 136/70
[2020-11-27 07:30] LABS: ANION GAP 6.1 mmol/L (8-16); CALCIUM 8.8 mg/dL (8.5-10.1); CARBON DIOXIDE 32.4 mmol/L (21.0-32.0); CREATININE - SERUM 1.1 mg/dL (0.6-1.3); POTASSIUM - SERUM 4.5 mmol/L (3.5-5.1)
[2020-11-27] MEDS ORDERED: DONEPEZIL HCL10 MG PO (08:15)
--- NOTE | 2020-11-27 09:30 | NUR ---
DC HOME WITH FAMILY. MEDS CALLED INTO PHARMACY. REVIEWED DC PLAN AND MEDS WITH DTR IN LAW. LEFT FLOOR IN .
--- NOTE | 2020-11-27 10:04 | NUR ---
PATIENT DIDCHARGING HOME TODAY WITH FAMILY. [facility] WILL PROVIDE THERAPY AT HOME. NO NEW DME NEEDED AT THIS TIME. DR. FULTON 12/08/20 @ 9:00, DR. TONY 12/03/20 @ 9:40. CHAIM SIGNED, IMM SERVED AND EXPLAINED, ONE GIVEN TO PATIENT AND ONE FILED IN CHART. COMPARE DATA REVIEWED PATIENT VOICED UNDERSTANDING. DISCHARGE INSTRUCTIONS FAXED TO PCP, HOME HEALTH AND REVIEWED WITH PATIENT.
== END 2020-11-27 09:30 | disposition home health service (06) | DRG 560 ==
LOC: D.REHAB 16:32
PROVIDERS: ADMIT Emergency Medicine; ATTEND Emergency Medicine
DX: S72.001D Fracture of unspecified part of neck of right femur, subsequent encounter for closed fracture with routine healing (principal); E87.1 Hypo-osmolality and hyponatremia; I10 Essential (primary) hypertension; E78.5 Hyperlipidemia, unspecified; K21.9 Gastro-esophageal reflux disease without esophagitis; F41.9 Anxiety disorder, unspecified; M19.90 Unspecified osteoarthritis, unspecified site; M81.0 Age-related osteoporosis without current pathological fracture; R41.3 Other amnesia; W19.XXXD Unspecified fall, subsequent encounter; I25.10 Atherosclerotic heart disease of native coronary artery without angina pectoris; I35.0 Nonrheumatic aortic (valve) stenosis

== ENCOUNTER 2020-11-29 21:40 | Inpatient (IN) | payer MEDICARE, OTHER ==
[~2020-11-29] VITALS: Ht 162.6 cm; Wt 75.1 kg
[~2020-11-29 21:40] MED LIST changes: +DONEPEZIL HCL10 MG PO
[2020-11-29 22:58] LABS: BASOPHILS 0.3 % (0-2); EOSINOPHILS 2.2 % (0-7); HEMATOCRIT 30.8 % (36.0-48.0); HEMOGLOBIN 10.1 g/dL (12-16); IMMATURE GRANULOCYTES 0.3 % (0-5); LYMPHOCYTE ABS# 0.98 10x3/uL (1.18-3.74); LYMPHOCYTES 15.4 % (15-50); MCH 29.4 pg (26.0-34.0); MCHC 32.8 g/dL (31.0-37.0); MCV 89.5 fL (80.0-100.0); MEAN PLATELET VOLUME 8.4 fL (7.4-10.4); MONOCYTES 9.3 % (2-11); NEUTROPHILS 72.5 % (40-80); PLATELET COUNT 354 10x3/uL (130-400); RBC 3.44 10x6/uL (4.00-5.40); RDW 12.6 % (11.5-14.5); WBC 6.4 10x3/uL (4.8-10.8)
[2020-11-29 23:06] LABS: INR 1.16 (0.85-1.17); PROTIME 13.7 SECONDS (11.6-15.0)
[2020-11-29 23:07] LABS: APTT 31.8 SECONDS (22.8-39.4)
[2020-11-29 23:20] LABS: ANION GAP 9.7 mmol/L (8-16); CALCIUM 8.8 mg/dL (8.5-10.1); CARBON DIOXIDE 29.7 mmol/L (21.0-32.0); CREATININE - SERUM 1.1 mg/dL (0.6-1.3); POTASSIUM - SERUM 4.4 mmol/L (3.5-5.1)
[2020-11-29 23:34] LABS: BILIRUBIN - TOTAL 0.5 mg/dL (0.2-1.3); PROTEIN - SERUM 6.2 g/dL (6.4-8.2)
[2020-11-30] VITALS (16 sets, daily range): BP systolic 59–179; BP diastolic 34–104; Ht 162.6 cm; Wt 75.1 kg
--- NOTE | 2020-11-30 00:38 | NUR ---
PT ARRIVED ON UNIT VIA STRETCHER ESCORTED BY ER NURSE AND DAUGHTER. TRANSFERRED TO BED USING 4 PERSON SLIDE TECHNIQUE. POSITIONED PT FOR COMFORT. EUBANKS CATHETER IN USE WITH YELLOW URINE IN COLLECTION BAG. SKIN ASSESSMENT: HAS HEALING SURGICAL INCISION ON RIGHT HIP. RIGHT HIP DEFORMITY AND VERY PAINFUL WITH MOVEMENT.
--- NOTE | 2020-11-30 00:50 | NUR ---
SCD'S PLACED ON BLE. NPO STATUS EXPLAINED TO PT AND FAMILY AND SIGNAGE PLACED ON DOOR.
--- NOTE | 2020-11-30 01:04 | NUR ---
PT RESTING QUIETLY AT THIS TIME WITH EYES CLOSED. BED ALARM IN USE FOR SAFETY.
--- NOTE | 2020-11-30 01:04 | NUR ---
ADMISSION ASSESSMENT, HISTORY, AND CARE PLANNING COMPLETE.
[2020-11-30 01:16] LABS: BILIRUBIN NEGATIVE (NEGATIVE); KETONE NEGATIVE (NEGATIVE); NITRITE NEGATIVE (NEGATIVE); UROBILINOGEN NORMAL mg/dL (< 2)
--- NOTE | 2020-11-30 02:11 | NUR ---
EKG PERFORMED PER ORDER. PLACED TELEMETRY PER ORDER. PT READING SR W/ BBB AND ELEVATED T WAVE AT THIS ASSESSMENT.
[2020-11-30 02:22] LABS: UDS - AMPHET NEGATIVE QUAL (NEGATIVE); UDS - BARB NEGATIVE QUAL (NEGATIVE); UDS - BENZO NEGATIVE QUAL (NEGATIVE); UDS - COCAINE NEGATIVE QUAL (NEGATIVE); UDS - OPIATE POSITIVE QUAL (NEGATIVE); UDS - PCP NEGATIVE QUAL (NEGATIVE); UDS - THC NEGATIVE QUAL (NEGATIVE)
--- NOTE | 2020-11-30 02:30 | NUR ---
HIBACLENS BATH PERFORMED IN PREPARATION FOR AM SURGERY.
[2020-11-30 06:43] LABS: ALBUMIN 2.7 g/dL (3.4-5.0); ALKALINE PHOSPHATASE 74 U/L (30-120); ALT (SGPT) 16 U/L (10-68); BILIRUBIN - TOTAL 0.44 mg/dL (0.2-1.3); CALC OSMOLALITY 266 mosm/kg (275-300); CALCIUM 8.5 mg/dL (8.5-10.1); CARBON DIOXIDE 29.6 mmol/L (21.0-32.0); CHLORIDE - SERUM 97 mmol/L (98-107); CKMB 0.8 U/L (0.0-3.6); CREATINE KINASE 48 UL (21-215); GLUCOSE 98 mg/dL (74-106); MAGNESIUM - SERUM 2.2 mg/dL (1.8-2.4); POTASSIUM - SERUM 4.2 mmol/L (3.5-5.1); PROTEIN - SERUM 5.9 g/dL (6.4-8.2); SODIUM 132 mmol/L (136-145); UREA NITROGEN 17 mg/dL (7-18); eGFR NON AFRICAN AMERICAN 56 mL/min (90-120)
[2020-11-30 06:45] LABS: TROPONIN-I < 0.017 ng/mL (0.000-0.060)
[2020-11-30 06:47] LABS: BASOPHILS 0.4 % (0-2); EOSINOPHILS 2.9 % (0-7); HEMATOCRIT 31.4 % (36.0-48.0); HEMOGLOBIN 9.8 g/dL (12-16); IMMATURE GRANULOCYTES 0.4 % (0-5); LYMPHOCYTE ABS# 1.07 10x3/uL (1.18-3.74); LYMPHOCYTES 19.1 % (15-50); MCH 28.2 pg (26.0-34.0); MCHC 31.2 g/dL (31.0-37.0); MCV 90.2 fL (80.0-100.0); MONOCYTES 9.7 % (2-11); NEUTROPHIL ABS# 3.78 10x3/uL (1.56-6.13); NEUTROPHILS 67.5 % (40-80); PLATELET COUNT 390 10x3/uL (130-400); RBC 3.48 10x6/uL (4.00-5.40); RDW 12.6 % (11.5-14.5); WBC 5.6 10x3/uL (4.8-10.8)
--- NOTE | 2020-11-30 08:00 | NUR ---
PATIENT IN BED WITH IV INTACT. EUBANKS INTACT. NO COMPLAINTS AT THIS TIME. SAYS NO PAIN ONLY WHEN MOVING. WAITING FOR SURGERY AT THIS TIME. CALL LIGHT WITHIN REACH.
--- NOTE | 2020-11-30 10:41 | MORECARE ---
CASE MANAGEMENT DISCHARGE SUMMARY PATIENT: THONG GUILLAUME UNIT: [id number] ADM DATE: 11/30/20 AGE: 80 : 40 SEX: F ROOM/BED: D.2214 AUTHOR: TAWANA DE LA FUENTE PHYSICIAN: REFERRING PHYSICIAN: NATALIIA HOLLAND MD DATE OF SERVICE: 11/30/20 Discharge Plan Patient Name: THONG GUILLAUME [facility] [facility] 1940 Planned Disposition: Inpatient Rehab Anticipated Discharge Date: Discharge Date: Expected LOS: Initial Reviewer: [email or web address] Initial Review Date: 11/30/2020 Generated: 11/30/20 11:41 am DCPIA - Discharge Planning Initial Assessment Updated by [email or web address]: Emmanuelle Nix on 11/30/20 10:41 am * Is the patient Alert and Oriented? Yes * How many steps to enter\exit or inside your home? * PCP KIRSTIN * Pharmacy [facility] * Preadmission Environment Home Alone * ADLs Partial Dependent * Partial ADLs (Assistance needed) Ambulation Medication Management * Equipment Walker * List name and contact numbers for known caregivers / representatives who currently or will assist patient after discharge: IAM GUILLAUME ( SON) [phone] * Verbal permission to speak to the caregivers and representatives has been obtained from the patient. Yes * Community resources currently utilized Home Health * Please name any agencies selected above. [facility] * Additional services required to return to the preadmission environment? Yes * Can the patient safely return to the preadmission environment? No * Has this patient been hospitalized within the prior 30 days at any hospital? Yes Patient Name: THONG GUILLAUME Page [phone] at 1041 All edits/amendments must be made on the electronic document DICTATION DATE: 11/30/20 1041 POLICY WRITER SALES: SIERRA 11/30/20 1041 RPT#: [id number] DC DATE: STATUS: ADM IN [facility] [address] [place] [address] END OF REPORT
--- NOTE | 2020-11-30 10:48 | MORECARE ---
CASE MANAGEMENT DISCHARGE SUMMARY PATIENT: THONG GUILLAUME UNIT: [id number] ADM DATE: 11/30/20 AGE: 80 : 40 SEX: F ROOM/BED: D.2214 AUTHOR: TAWANA DE LA FUENTE PHYSICIAN: REFERRING PHYSICIAN: NATALIIA HOLLAND MD DATE OF SERVICE: 11/30/20 Discharge Plan Patient Name: THONG GUILLAUME [facility] : 1940 Planned Disposition: Inpatient Rehab Anticipated Discharge Date: Discharge Date: Expected LOS: Initial Reviewer: [email or web address] Initial Review Date: 11/30/2020 Generated: 11/30/20 11:47 am Comments DCP- Discharge Planning Updated by [email or web address]: Emmanuelle Nix on 11/30/20 8:[address] Patient Name: THONG GUILLAUME Admission Status: ER Accout number: [id number] Admission Date: 11-30-2020 : 1940 Admission Diagnosis: Attending: NATALIIA BOYLE Current LOS: 1 Anticipated DC Date: Planned Disposition: Inpatient Rehab Primary Insurance: MEDICARE A & B Discharge Planning Comments: . CM met with patient and son to complete initial dc planning assessment. CM educated patient on the CM role and verbal consent given by patient to complete assessment. Patient lives at home by herself, but has had family with her at all times since she was dc home on Monday. Per her son she was dc home with [facility] on this past Monday and either himself or his had been with her 10/04. CM discussed availability of home health, rehab services, and medical equipment. He would like her to go back to inpatient rehab at [facility] again prior to DC home. She was set up with [facility] when she was DC Monday. She has a walker at home. Patient denied known discharge needs at this time. CHAIM signed by her son. Patient seemed confused when I was asking questions. Unsure of her PLOF cognitively. CM will continue to follow and will assist as needed with dc plans/needs Child Care Specialist: Emmanuelle Nix DCPIA - Discharge Planning Initial Assessment Updated by [email or web address]: Emmanuelle Nix on 11/30/20 10:41 am * Is the patient Alert and Oriented? Yes * How many steps to enter\exit or inside your home? * PCP KIRSTIN * Pharmacy [facility] * Preadmission Environment Home Alone * ADLs Partial Dependent * Partial ADLs (Assistance needed) Ambulation Medication Management * Equipment Walker * List name and contact numbers for known caregivers / representatives who currently or will assist patient after discharge: IAM GUILLAUME ( SON) [phone] * Verbal permission to speak to the caregivers and representatives has been obtained from the patient. Yes * Community resources currently utilized Home Health * Please name any agencies selected above. [facility] * Additional services required to return to the preadmission environment? Yes * Can the patient safely return to the preadmission environment? No * Has this patient been hospitalized within the prior 30 days at any hospital? Yes Last DP export: 11/30/20 8:41 a Patient Name: THONG GUILLAUME Page [phone] at 1048 All edits/amendments must be made on the electronic document DICTATION DATE: 11/30/201046 ROD BUSTER HELPER: SIERRA 11/30/201046 RPT#: [id number] DC DATE: STATUS: ADM IN [facility] [address] [place] [address] END OF REPORT
--- NOTE | 2020-11-30 16:30 | NUR ---
PATIENT WENT TO OR
[2020-11-30 17:58] LABS: BASOPHILS 0.4 % (0-2); EOSINOPHILS 2.5 % (0-7); HEMATOCRIT 28.5 % (36.0-48.0); HEMOGLOBIN 9.1 g/dL (12-16); IMMATURE GRANULOCYTES 0.2 % (0-5); LYMPHOCYTE ABS# 1.21 10x3/uL (1.18-3.74); LYMPHOCYTES 23.1 % (15-50); MCH 28.7 pg (26.0-34.0); MCHC 31.9 g/dL (31.0-37.0); MCV 89.9 fL (80.0-100.0); MEAN PLATELET VOLUME 8.7 fL (7.4-10.4); MONOCYTES 10.1 % (2-11); NEUTROPHIL ABS# 3.33 10x3/uL (1.56-6.13); NEUTROPHILS 63.7 % (40-80); PLATELET COUNT 321 10x3/uL (130-400); RBC 3.17 10x6/uL (4.00-5.40); RDW 12.4 % (11.5-14.5); WBC 5.2 10x3/uL (4.8-10.8)
--- NOTE | 2020-11-30 19:38 | NUR ---
PATIENT STATING SHE IS HURTING. UNABLE TO TOLERATE WITH BP BEING SO LOW.
--- NOTE | 2020-11-30 19:38 | NUR ---
PATIENT STILL IN OR. REPORT TO [facility].
[2020-11-30 21:24] LABS: HEMATOCRIT 20.1 % (36.0-48.0)
[2020-11-30 21:25] LABS: HEMOGLOBIN 6.6 g/dL (12-16)
[2020-11-30 23:56] LABS: HEMATOCRIT 30.5 % (36.0-48.0); HEMOGLOBIN 10.4 g/dL (12-16)
[2020-12-01] VITALS (86 sets, daily range): BP systolic 65–185; BP diastolic 38–96
[2020-12-01 02:31] LABS: HEMATOCRIT 28.5 % (36.0-48.0); HEMOGLOBIN 9.3 g/dL (12-16)
[2020-12-01 04:50] LABS: BASOPHILS 0.2 % (0-2); EOSINOPHILS 0.4 % (0-7); HEMATOCRIT 27.6 % (36.0-48.0); HEMOGLOBIN 8.9 g/dL (12-16); IMMATURE GRANULOCYTES 3.5 % (0-5); LYMPHOCYTE ABS# 2.39 10x3/uL (1.18-3.74); LYMPHOCYTES 12.5 % (15-50); MCH 29.4 pg (26.0-34.0); MCHC 32.2 g/dL (31.0-37.0); MCV 91.1 fL (80.0-100.0); MONOCYTES 5.3 % (2-11); NEUTROPHIL ABS# 14.96 10x3/uL (1.56-6.13); NEUTROPHILS 78.1 % (40-80); RBC 3.03 10x6/uL (4.00-5.40); RDW 14.7 % (11.5-14.5)
[2020-12-01 04:59] LABS: PLATELET COUNT 206 10x3/uL (130-400); WBC 19.1 10x3/uL (4.8-10.8)
[2020-12-01 05:15] LABS: BILIRUBIN - TOTAL 0.87 mg/dL (0.2-1.3); MAGNESIUM - SERUM 1.8 mg/dL (1.8-2.4); PHOSPHOROUS 7.9 mg/dL (2.5-4.9)
[2020-12-01 05:43] LABS: ALBUMIN 1.3 g/dL (3.4-5.0); ANION GAP 25.8 mmol/L (8-16); CALCIUM 6.5 mg/dL (8.5-10.1); CARBON DIOXIDE 11.2 mmol/L (21.0-32.0); CREATININE - SERUM 1.7 mg/dL (0.6-1.3); PROTEIN - SERUM 3.2 g/dL (6.4-8.2)
--- NOTE | 2020-12-01 06:51 | OP ---
PATIENT NAME: THONG GUILLAUME MEDICAL RECORD: [id number] :40 LOCATION:[facility] D.2305 ADMISSION DATE:11/30/20 SURGEON: FLORIN TONY DO DATE OF OPERATION: 11/30/2020 PROCEDURE PERFORMED: Revision right karen hip arthroplasty. PREOPERATIVE DIAGNOSIS: Right hip periprosthetic fracture. POSTOPERATIVE DIAGNOSIS: Right hip periprosthetic fracture. INDICATIONS: Ms. Guillaume is an 80-year-old female who underwent right karen hip arthroplasty approximately 2 weeks ago. She is doing well even in rehab and was walking without a walker and then last night her family said she said her hip hurt and was refusing to walk. They brought her to the ER. She was seen to have periprosthetic fracture in the proximal femur and the stem has subsided. The fracture extended down just below the lesser trochanter. They do not recall the fall and said that she had been watched and said that she sat down hard a few times, but other than that, there was no incident they report. At any rate, the patient's family was talk to, I told them I need to revise it and put a longer stem down to get her up moving and put cables around the fracture and they were okay with that. They were aware of the risks of this including infection, bleeding, damage to nerves or vessels in the area, continued pain, need for further surgery, fracture again, blood loss, need for blood products, blood clots, and even and they verbally gave consent over the phone. SURGEON: Florin Tony DO DESCRIPTION OF PROCEDURE: The patient was taken to the operative suite, laid in supine position, given general anesthetic and intubated. She was given half a gram of vancomycin preoperatively and a gram of TXA. She was then moved over to the [place] table and position of the right hip was prepped and draped in sterile fashion. A timeout was performed. Everyone was in agreement with the correct side, site, patient and procedure. I then began by making an incision over the previous wound and extending it distally. There was a large seroma underneath the skin and this was irrigated and removed. I then made careful dissection down through the tensor fascia chasity fascia down to the femur. I then dislocated the hip and removed the stem and the head. I then exposed the femur and put 2 cables around reducing the fracture nicely, one distal to the lesser trochanter and one proximal. I then reamed up to a 15 and then broached to a 15, put 15 and 175 arcus down and a -6 neck with a bipolar head, reduced the fracture, got x-rays and saw that it was in good length compared to the left. Also, there were no fractures seen in the femur and the stem fit very well. I then irrigated with 10% povidone iodine and 500 mL normal saline solution and let it sit for 3 minutes and irrigated out with over a liter of normal saline and then put in Kori and vancomycin and tobramycin powder. We then closed the tensor fascia chasity fascia with #1 Vicryl in a [id number] and then a running locking stitch. I then closed the skin with 2-0 Vicryl in interrupted fashion. César Sorensen, certified surgical technician and Martha Cavazos certified breastfeeding educator then closed the skin with a running 4-0 Monocryl and then put a Prineo glue on the incision and once it dried, Telfa and Tegaderm. She was then given a gram of TXA awakened and taken to recovery in stable condition. Blood loss approximately 500 mL. COMPLICATIONS: None. OPERATIVE REPORT [id number] MARKELL,MYRADELAIDE TRANSINT:[id number] Voice Confirmation ID: [id number] DOCUMENT ID: [id number] FLORIN TONY DO at 0651 CC: [id number] DICTATION DATE: 11/30/201900 AMBULANCE ASSISTANT: 11/30/202007 ADM IN [place] [id number] [place] [address]
[2020-12-01 07:59] LABS: HEMATOCRIT 25.9 % (36.0-48.0); HEMOGLOBIN 7.9 g/dL (12-16)
[2020-12-01 12:39] LABS: HEMATOCRIT 28.3 % (36.0-48.0); HEMOGLOBIN 9.3 g/dL (12-16)
[2020-12-01 16:03] LABS: HEMATOCRIT 22.2 % (36.0-48.0); HEMOGLOBIN 7.3 g/dL (12-16)
--- NOTE | 2020-12-01 16:55 | NUR ---
CRITICAL LAB CALLED TO DR. TONY, NEW ORDERS RECIEVED
--- NOTE | 2020-12-01 19:00 | NUR ---
Report received from off going nurse. Pt is laying in bed intubated and sedated. Shift assessment completed, see flowsheet for details. No s/s of distress noted at this time. Will continue to monitor.
[2020-12-01 22:32] LABS: HEMOGLOBIN 10.5 g/dL (12-16)
[2020-12-02] VITALS (17 sets, daily range): BP systolic 101–114; BP diastolic 45–52
[2020-12-02 03:31] LABS: BASOPHILS 0.1 % (0-2); EOSINOPHILS 0.2 % (0-7); HEMATOCRIT 26.3 % (36.0-48.0); HEMOGLOBIN 8.9 g/dL (12-16); IMMATURE GRANULOCYTES 0.9 % (0-5); LYMPHOCYTE ABS# 1.33 10x3/uL (1.18-3.74); LYMPHOCYTES 10.3 % (15-50); MCH 29.9 pg (26.0-34.0); MCHC 33.8 g/dL (31.0-37.0); MCV 88.3 fL (80.0-100.0); NEUTROPHIL ABS# 11.01 10x3/uL (1.56-6.13); NEUTROPHILS 85.5 % (40-80); PLATELET COUNT 51 10x3/uL (130-400); RBC 2.98 10x6/uL (4.00-5.40); RDW 14.3 % (11.5-14.5); WBC 12.9 10x3/uL (4.8-10.8)
[2020-12-02 03:55] LABS: BILIRUBIN - TOTAL 0.65 mg/dL (0.2-1.3); PHOSPHOROUS 6.4 mg/dL (2.5-4.9); POTASSIUM - SERUM 5.6 mmol/L (3.5-5.1)
[2020-12-02 04:09] LABS: ANION GAP 23.5 mmol/L (8-16); CALCIUM 5.5 mg/dL (8.5-10.1); CARBON DIOXIDE 20.1 mmol/L (21.0-32.0); CREATININE - SERUM 2.3 mg/dL (0.6-1.3)
[2020-12-02 04:10] LABS: ALBUMIN 0.7 g/dL (3.4-5.0); PROTEIN - SERUM 1.9 g/dL (6.4-8.2)
[2020-12-02 04:22] LABS: PLATELET ESTIMATE DECREASED
== END 2020-12-02 08:39 | DRG 466 ==
LOC: D.ER 21:40 → D.ICU 11-30 00:11 → D.MS 11-30 00:11 → D.ICU 11-30 21:56
PROVIDERS: Anesthesiology; Family Medicine; Orthopaedic Surgery; ADMIT Family Medicine Adult Medicine; ATTEND Family Medicine Adult Medicine
PROC: 0SPR0JZ Removal of Synthetic Substitute from Right Hip Joint, Femoral Surface, Open Approach (ICD-10-PCS; 2020-11-30)
PROC: 0BH17EZ Insertion of Endotracheal Airway into Trachea, Via Natural or Artificial Opening (ICD-10-PCS; 2020-11-30)
PROC: 5A12012 Performance of Cardiac Output, Single, Manual (ICD-10-PCS; 2020-11-30)
PROC: 5A1945Z Respiratory Ventilation, 24-96 Consecutive Hours (ICD-10-PCS; 2020-11-30)
PROC: 0SRR0JZ Replacement of Right Hip Joint, Femoral Surface with Synthetic Substitute, Open Approach (ICD-10-PCS; principal; 2020-11-30 12:00)
DX: M97.01XA Periprosthetic fracture around internal prosthetic right hip joint, initial encounter (principal); J96.90 Respiratory failure, unspecified, unspecified whether with hypoxia or hypercapnia; T81.12XA Postprocedural septic shock, initial encounter; G93.41 Metabolic encephalopathy; E87.1 Hypo-osmolality and hyponatremia; D62 Acute posthemorrhagic anemia; N17.9 Acute kidney failure, unspecified; T81.44XA Sepsis following a procedure, initial encounter; M96.842 Postprocedural seroma of a musculoskeletal structure following a musculoskeletal system procedure; I46.9 Cardiac arrest, cause unspecified; I10 Essential (primary) hypertension; I25.10 Atherosclerotic heart disease of native coronary artery without angina pectoris; E78.5 Hyperlipidemia, unspecified; K21.9 Gastro-esophageal reflux disease without esophagitis; F41.9 Anxiety disorder, unspecified; M81.0 Age-related osteoporosis without current pathological fracture; F03.90 Unspecified dementia, unspecified severity, without behavioral disturbance, psychotic disturbance, mood disturbance, and anxiety; Y83.9 Surgical procedure, unspecified as the cause of abnormal reaction of the patient, or of later complication, without mention of misadventure at the time of the procedure